=== PATIENT | male | born 1980 | race Caucasian/White ===

== ENCOUNTER 2018-01-28 16:34 | Inpatient (IN) | payer BC ==
[2018-01-28] MEDS ORDERED: ACETAMINOPHEN 500 MG TAB PO PRN (16:59)
[2018-01-28] MEDS ORDERED: DOCUSATE NA 100 MG CAP PO PRN (16:59)
[2018-01-28] MEDS ORDERED: NA CHLORIDE 0.9% 1,000 ML IV SCH (17:00)
[2018-01-28 17:37] LABS: Absolute Lymphocytes (CBC) 2.4 K/uL (0.7-4.9); Absolute Monocytes 0.7 K/uL (0.1-1.3); Absolute Neutrophil 5.2 K/uL (1.8-8.0); Basophils % 0.4 % (0-1.3); Eosinophils % 4.5 % (0-4.4); Hematocrit 47.7 % (39.6-49.0); Lymphocytes % 27.3 % (15.3-44.8); MCH 29.8 pg (27.0-35.0); MCV 90.4 fL (80-100); MPV 7.5 fL (7.6-11.3); Monocytes % 8.2 % (3.3-12.3); RBC Red Blood Cell Count 5.27 M/uL (4.33-5.43)
[2018-01-28] MEDS: MORPHINE 4 MG/ML SYR IV PRN ×2 (17:40→22:13)
[2018-01-28 17:45] LABS: Albumin 4.7 g/dL (3.2-5.5); Bilirubin Total 0.4 mg/dL (0.3-1.2); Protein, Total 7.7 g/dL (6.0-8.3)
[2018-01-28 18:01] VITALS: BMI 40.3
[2018-01-28 18:03] LABS: Potassium 4.4 mEq/L (3.6-5.0)
[2018-01-28] MEDS: HYDROCODONE/APAP 7.5/325 MG TAB PO PRN ×2 (18:51→23:11)
--- NOTE | 2018-01-28 19:50 | RAD REPORT ---
EXAM DESCRIPTION: RAD - Chest Single View - 01/28/2018 6:56 pm CLINICAL HISTORY: Cough COMPARISON: None. TECHNIQUE: AP portable chest image was obtained 1846 hours . FINDINGS: Lung romero are clear. No mediastinal or hilar mass or lymphadenopathy seen. Trachea is mi dline. Heart and vasculature are normal. No measurable pleural effusion and no pneumothorax. No gross bony abnormality seen. No acute aortic findings suspected. IMPRESSION: No acute cardiopulmonary process.
[2018-01-28] MEDS: acetaZOLAMIDE 250 MG TAB PO SCH (20:07)
[2018-01-28] MEDS: COMBIGAN EYE DROPS OPTH SCH (20:08)
[2018-01-28] MEDS: PREDNISOLONE 1% OPTH SOLN 5ML OPTH SCH (20:08)
[2018-01-28] MEDS: ATROPINE 1% OPTH DROPS 5ML OPTH SCH (20:08)
[2018-01-28] MEDS: BIMATOPROST OPHTH DROPS/2.5 ML BTL OPTH SCH (20:09)
[2018-01-28 20:19] LABS: Urine Appearance TURBID; Urine Bilirubin NEGATIVE (NEG); Urine Blood NEGATIVE (NEG); Urine Color YELLOW; Urine Glucose NEGATIVE (NEG); Urine Protein NEGATIVE (NEG)
[2018-01-28 20:20] LABS: Urine Microscopic Reflex ORDER UMIC
[2018-01-28 20:57] LABS: Urine Amorphous Sediment 4+ /HPF (NONE SEEN); Urine Bacteria 20-50 /HPF (NONE SEEN); Urine Culture Reflex Order REFLEXED; Urine RBC NONE SEEN /HPF (NONE SEEN)
[2018-01-28] MEDS ORDERED: acetaZOLAMIDE 250 MG TAB PO SCH (21:00)
[2018-01-28] MEDS ORDERED: ATROPINE 1% OPTH DROPS 5ML OPTH SCH ×2 (21:00)
--- NOTE | 2018-01-28 22:54 | HP ---
Date of Admission: 01/28/2018 Consultants: Jaiden Mao M.D., Ophthalmology. Code Status: Full. Chief Complaint: Eye pain on the left. 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 The patient reports s ignificant amount of pain since that time, which has not been controlled with medications. The patie nt of note is scheduled to have an enucleation of the by Dr. Mao; however, due to his intense continuously worsening pain, he is unable to tolerate his symptoms. No alleviating factors or aggrav ating factors. The patient denies any fevers, chills, nausea, vomiting, shortness of breath, or ches t pain. The patient initially came into the ER, Dr. Lozano assessed the situation and requested dir ect admission and the patient was admitted directly after Dr. Lozano spoke with Dr. Mao. When the patient was seen on the floor, he was awake, alert, oriented x3, in some moderate distress due to ey e pain. Past Medical History: Glaucoma, diagnosed in 2013. Past Surgical History: Appendectomy. Allergies: SULFA. Medications: Reviewed. Family History: Positive for macular degeneration in the grandfather. Social History: The patient is , has a son. Denies any tobacco use. Occasional alcohol use. No illicit drug use. Review of Systems: An 11-point system reviewed, negative except as per HPI. Physical Examination: Vital Signs: Stable. The patient is afebrile. General: Awake, alert, oriented x3, obese male in moderate distress. HEENT: Normocephalic, atraumatic. Right pupil is equal, reactive to light and accommodation. Extra ocular movements intact. Oropharynx is clear. Conjunctiva is anicteric. Neck: Supple. No JVD. Trachea midline. CV: S1, S2. Regular rate and rhythm. Peripheral pulses present. No murmurs. Respiratory: Clear to auscultation bilaterally. No wheezing. No stridor. No use of accessory musc les. Gastrointestinal: Abdomen is soft, nontender, nondistended. Positive bowel sounds. No guarding or rigidity. No palpable masses. Extremities: No clubbing, cyanosis, or edema. No calf tenderness. Neuro: Cranial nerves 3 through 12 intact grossly. No focal neurological deficits. Strength is 5/5 in bilateral upper and lower extremities. Sensation is intact to light touch. Skin: No rashes. Normal skin turgor. Psych: Mood is slightly anxious. Affect is congruent with mood. Insight and judgment are good. Laboratory Data: Pending at this time. Assessment And Plan: 1.A 38-year-old male with intractable left eye pain secondary to glaucoma. We will continue on home medications including eye drops and Diamox. We will start on pain medications. Dr. Mao will be c onsulted the patient to go for enucleation on Tuesday. 2.Obesity. 3.Gastrointestinal and deep venous thrombosis prophylaxis, PPI, SCDs. Plan: Admit the patient to Med-Surg, place as observation. We will obtain chest x-ray, EKG, CBC, CM P, and reconcile home medications once available. SARKIS Voice ID: [id number]
[2018-01-29] MEDS: MORPHINE 4 MG/ML SYR IV PRN ×5 (02:19→20:29)
[2018-01-29] MEDS: HYDROCODONE/APAP 7.5/325 MG TAB PO PRN ×5 (03:13→21:37)
[2018-01-29 06:13] LABS: Albumin 4.3 g/dL (3.2-5.5); Bilirubin Total 0.6 mg/dL (0.3-1.2); Potassium 4.2 mEq/L (3.6-5.0)
[2018-01-29 06:26] LABS: Absolute Lymphocytes (CBC) 1.9 K/uL (0.7-4.9); Absolute Monocytes 0.6 K/uL (0.1-1.3); Absolute Neutrophil 5.4 K/uL (1.8-8.0); Basophils % 0.4 % (0-1.3); Eosinophils % 4.3 % (0-4.4); Hematocrit 44.9 % (39.6-49.0); Lymphocytes % 22.8 % (15.3-44.8); MCH 30.2 pg (27.0-35.0); MCV 90.5 fL (80-100); MPV 7.5 fL (7.6-11.3); Monocytes % 7.5 % (3.3-12.3); RBC Red Blood Cell Count 4.96 M/uL (4.33-5.43)
[2018-01-29] MEDS: acetaZOLAMIDE 250 MG TAB PO SCH ×2 (08:22→20:21)
[2018-01-29] MEDS: PREDNISOLONE 1% OPTH SOLN 5ML OPTH SCH ×2 (08:24→20:22)
[2018-01-29] MEDS: COMBIGAN EYE DROPS OPTH SCH ×2 (08:25→20:22)
[2018-01-29] MEDS: BIMATOPROST OPHTH DROPS/2.5 ML BTL OPTH SCH ×2 (08:25→20:22)
[2018-01-29] MEDS: ATROPINE 1% OPTH DROPS 5ML OPTH SCH ×4 (08:25→20:21)
--- NOTE | 2018-01-29 09:38 | P.PN ---
Subjective Date of Service: 01/29/18 (Hospitalist note) Chief Complaint: Left eye pain Patient is admitted to the hospital for pain control scheduled to have a enucleation of the left eye due to severe glaucoma is pain is well controlled no other complaints he is eating and drinking well Review of Systems Unremarkable Physical Examination - Vital Signs Temperature: 97.6 F Blood Pressure: 116/56 Pulse: 68 Respirations: 18 Pulse Ox (%): 97 - Physical Exam General: Alert, Oriented x3 Neck: Supple Respiratory: Clear to auscultation bilaterally Cardiovascular: No edema, Normal S1 S2 Gastrointestinal: Normal bowel sounds, Soft and benign - Studies Laboratory Data (last 24 hrs) 01/29/18 05:23: Sodium 134 L, Potassium 4.2, BUN 23 H, Creatinine 1.46 H, Glucose 121 H, Total Bilirubin 0.6, AST 20, ALT 26, Alkaline Phosphatase 40 L 01/29/18 05:23: WBC 8.4, Hgb 15.0, Hct 44.9, Plt Count 259 01/28/18 17:17: Sodium 137, Potassium 4.4, BUN 22 H, Creatinine 1.57 H, Glucose 118, Total Bilirubin 0.4, AST 23, ALT 30, Alkaline Phosphatase 43 01/28/18 17:17: WBC 8.7, Hgb 15.7, Hct 47.7, Plt Count 281 Assessment & Plan - Problems (Diagnosis) (1) Pain around left eye Current Visit: Yes Status: Acute Plan: Patient is 38 years of age admitted with the pain control of the left eye scheduled for enucleation secondary to severe glaucoma renal function is abnormal (2) Chronic renal failure Current Visit: Yes Status: Acute Plan: Patient has abnormal creatinine most likely chronic renal failure of order an ultrasound of the kidneys urinalysis is negative Qualifiers: Chronic kidney disease stage: stage 1 Qualified Code(s): N18.1 - Chronic kidney disease, stage 1
--- NOTE | 2018-01-29 15:53 | RAD REPORT ---
EXAM DESCRIPTION: US - Renal Ultrasound-Complete - 01/29/2018 3:48 pm CLINICAL HISTORY: Renal insufficiency COMPARISON: CT December 2013 FINDINGS: The right kidney measures 10.2 x 4.9 x 5.3 cm. The left kidney measures 11.5 x 4.6 x 5.8 cm. Renal cortical thickness and echogenicity are normal. No hydronephrosis or suspicious renal mass. IMPRESSION: No hydronephrosis or suspicious renal mass. No other significant findings.
--- NOTE | 2018-01-29 22:36 | EKG ---
Test Date: 2018-01-28 Test Time: 18:04:27 Caustic Loader: ANASTASIYA MEASUREMENT RESULTS: Intervals: Rate: 80 WY: 146 QRSD: 82 QT: 356 QTc: 410 [place]: P: 35 WY: 146 QRS: 22 T: 12 INTERPRETIVE STATEMENTS: Normal sinus rhythm Normal ECG Compared to ECG 07/15/1996 12:27:00 No significant changes Electronically Signed On 01-29-18 22:35:52 CDT by Jake De La Torre
[2018-01-29] MEDS: ONDANSETRON 4 MG/2 ML VIAL IV PRN (23:01)
[2018-01-30] MEDS: MORPHINE 4 MG/ML SYR IV PRN ×3 (00:56→18:05)
[2018-01-30] MEDS: HYDROCODONE/APAP 7.5/325 MG TAB PO PRN ×5 (01:53→20:03)
[2018-01-30] MEDS: ONDANSETRON 4 MG/2 ML VIAL IV PRN ×2 (07:59→18:05)
[2018-01-30] MEDS: PREDNISOLONE 1% OPTH SOLN 5ML OPTH SCH ×2 (08:00→21:31)
[2018-01-30] MEDS: COMBIGAN EYE DROPS OPTH SCH ×2 (08:00→21:31)
[2018-01-30] MEDS: BIMATOPROST OPHTH DROPS/2.5 ML BTL OPTH SCH ×2 (08:01→21:32)
[2018-01-30] MEDS: ATROPINE 1% OPTH DROPS 5ML OPTH SCH ×4 (08:01→21:31)
[2018-01-30] MEDS: acetaZOLAMIDE 250 MG TAB PO SCH ×2 (08:38→21:30)
--- NOTE | 2018-01-30 11:20 | PN ---
Date of Progress Note: 01/30/2018 Subjective: The patient is seen and examined, chart reviewed, and case discussed with RN. The patie nt is still having significant amount of pain in his eye, scheduled for surgery in a.m. Review of Systems: Negative except as above. Medications: Reviewed. Physical Examination: Vital Signs: Temperature 98.5, heart rate 61, blood pressure 100/55, respirations 20, O2 97% on room air. General: Awake, alert, oriented x3. He is in mild distress, morbidly obese male. CV: S1, S2. No murmurs. Regular rate and rhythm. Respiratory: Moving air well bilaterally. No wheezing. Abdomen: Soft, nontender, and nondistended. Positive bowel sounds. Extremities: No clubbing, cyanosis, or edema. Neuro: Nonfocal. Assessment And Plan: A 38-year-old male with: 1.Intractable left eye pain secondary to glaucoma. We will continue with pain medications. We will give 1 dose of fentanyl. The patient is scheduled for enucleation in a.m. by Dr. Mao. 2.Glaucoma. We will continue eye drops. 3.Chronic kidney disease. Creatinine is stable. We will continue to monitor. Avoid NSAIDs and nep hrotoxins. 4.Morbid obesity, BMI of 40. Plan: Anticipate enucleation in a.m. GI and DVT prophylaxis, PPI, SCDs. /ZENY Voice ID: [id number] Report ID: [id number]
[2018-01-30] MEDS ORDERED: FENTANYL CITR 100 MCG/2 ML IV ONE (12:00)
[2018-01-30] MEDS: FENTANYL CITR 100 MCG/2 ML IV PRN (22:49)
[2018-01-31] MEDS: FENTANYL CITR 100 MCG/2 ML IV PRN ×5 (03:12→21:00)
[2018-01-31 05:48] LABS: Potassium 4.2 mEq/L (3.6-5.0)
[2018-01-31 05:55] LABS: Protime INR 0.96
[2018-01-31] MEDS: HYDROCODONE/APAP 7.5/325 MG TAB PO PRN (08:57)
[2018-01-31] MEDS: ATROPINE 1% OPTH DROPS 5ML OPTH SCH ×4 (08:58→21:10)
[2018-01-31] MEDS: BIMATOPROST OPHTH DROPS/2.5 ML BTL OPTH SCH ×2 (08:58→21:00)
[2018-01-31] MEDS: COMBIGAN EYE DROPS OPTH SCH ×2 (08:58→21:00)
[2018-01-31] MEDS: PREDNISOLONE 1% OPTH SOLN 5ML OPTH SCH ×2 (08:58→21:00)
[2018-01-31] MEDS: acetaZOLAMIDE 250 MG TAB PO SCH ×2 (08:59→21:07)
--- NOTE | 2018-01-31 14:27 | PN ---
Date of Progress Note: 01/31/2018 Subjective: The patient seen and examined, chart reviewed, and case discussed with RN. The patient states, the pain medication adjustment helped. The patient going for surgery this evening around 5:0 0 p.m. Review of Systems: Negative except as above. Medications: Reviewed. Physical Examination: Vital Signs: Temperature 100.8, heart rate 67, blood pressure 131/64, respirations 20, and O2 100% o n room air. General: Awake, alert, oriented x3, in some mild distress, morbidly obese male. CV: S1, S2. No murmurs. Peripheral pulses present. Respiratory: Moving air well bilaterally. No wheezing. Abdomen: Soft. Gastrointestinal: Abdomen is soft, nontender, nondistended. Positive bowel sounds. Extremities: No clubbing, cyanosis, or edema. Neurologic: Nonfocal. Laboratory Data: Sodium 135, potassium 4.2, chloride 109, CO2 22, BUN 19, creatinine 1.62, glucose 1 03, calcium 9.5, and magnesium 2. INR 0.96. Urine culture pending. Assessment And Plan: A 38-year-old male; 1.Intractable left eye pain secondary to glaucoma, improved with pain medications, going for enuclea tion today by Dr. Mao. 2.Glaucoma. Continue eyedrops. 3.Chronic kidney disease. Creatinine is stable. We will continue to monitor. 4.Morbid obesity, body mass index of 40, counseled. 5.Gastrointestinal and deep venous thrombosis prophylaxis with PPI and SCDs. Ambulation. SARKIS Voice ID: [id number] Report ID: [id number]
[2018-01-31] MEDS ORDERED: Ringers Lactate 1,000 ML IV ONE ×2 (16:38→18:44)
[2018-01-31] MEDS ORDERED: SUCCINYLCHOLINE 20 MG/ML (10 ML) IV ONE (17:01)
[2018-01-31] MEDS ORDERED: CEFAZOLIN/SWI 1gm 1 GM/10 ML SYR ONE (17:04)
[2018-01-31] MEDS ORDERED: MIDAZOLAM HCL 2 MG/2 ML INJ ONE (17:05)
[2018-01-31] MEDS ORDERED: PROPOFOL 200 MG/20 ML VIAL IV ONE (17:05)
[2018-01-31] MEDS ORDERED: FENTANYL CITR 250 MCG/5 ML ONE (17:05)
[2018-01-31] MEDS ORDERED: ROCURONIUM 50 MG/5 ML VIAL IV ONE (17:05)
[2018-01-31] MEDS ORDERED: BSS OPTHALMIC SOL 15 ML BOT OPTH ONE (17:42)
[2018-01-31] MEDS ORDERED: CEFAZOLIN SODIUM 1 GM/VIAL ONE (17:42)
[2018-01-31] MEDS ORDERED: POVIDONE-IODINE 5% EYE DROPS ONE (17:42)
[2018-01-31] MEDS ORDERED: GLYCOPYRROLATE 0.2 MG/ML SYR ONE ×2 (17:57→18:44)
[2018-01-31] MEDS ORDERED: TOBRADEX 0.3-0.1% OPTH OINTMENT ONE (18:11)
[2018-01-31] MEDS ORDERED: GENTAMICIN SULF 80 MG/2ML INJ ONE (18:19)
[2018-01-31] MEDS ORDERED: GENTAMICIN 80 MG/100 ML BAG 80 MG/100 ML BAG IV ONE (18:20)
[2018-01-31] MEDS ORDERED: NEOSTIGMINE 1 MG/ML -5 ML SYRINGE ONE (18:44)
[2018-01-31] MEDS ORDERED: MEPERIDINE HCL 25 MG/0.5 ML ONE ×2 (19:52→19:59)
[2018-01-31] MEDS ORDERED: ONDANSETRON 4 MG/2 ML VIAL ONE (19:59)
[2018-02-01] MEDS: FENTANYL CITR 100 MCG/2 ML IV PRN ×3 (00:54→09:28)
[2018-02-01 02:19] VITALS: O2SAT 97
[2018-02-01] MEDS: HYDROCODONE/APAP 7.5/325 MG TAB PO PRN ×3 (03:12→12:29)
--- NOTE | 2018-02-01 06:07 | OP ---
Date of Procedure: 01/31/2018 Surgeon: Joe Mao MD Product Architect: Jaiden Mao M.D. 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 Procedure Performed: Enucleation, left eye with placement of intra-ocular sphere and conformer. Description Of Procedure: After being properly identified in the preoperative holding area where the procedure as well as laterality were confirmed with both the patient and his spouse, the patient was taken back to the operating room where a time-out was performed. The patient was then prepped and draped in the normal sterile fashion. Examination of the left globe revealed it to be extremely red and slightly proptotic with no red reflex present. A conjunctival peritomy was performed 360 degrees and each of the 4 lateral rectus muscles was identified and then tagged with a 4-0 silk suture placed. Once all 4 had been identified, the muscles were then disinserted and again a 4- 0 silk suture placed through the muscle insertion stump at the location of the lateral rectus and medial rectus and tied into position. The inferior oblique as well as the superior oblique were similarly identified and kept free without suture tagging. Once all 6 muscles had been disinserted, a pair of enucleation scissors was passed behind the globe with the globe being pulled taut anteriorly. The optic nerve was felt and strummed and then the enucleation scissors used to cut the optic nerve. The disinsertion of the globe process itself was rather difficult with multiple maneuvers being had and while the globe was removed, it did appear that the globe may have been compromised as it was slightly soft upon removal, however it was well formed. Once the globe was removed, pressure was held into place in order to achieve hemostasis. There was noted to be a large amount of orbital fat prolapse. Once the direct pressure was removed, a small amount of cautery was performed and hemostasis was achieved. Because of the large amount of fat present, a small amount was removed and a size 14-mm sphere was placed in the orbit. The medial rectus and lateral rectus were then sewn together to hold back the conforming sphere and then an identical procedure was had on the inferior rectus and superior rectus. Once the muscle straps have been secured and the sphere appeared in good position without tendency to come forward, a closure of the conjunctiva was carried out using 6-0 Vicryl suture. This was done medial to laterally using a running suture and then once secured, a second pass going lateral to nasal was also performed. A conformer was then placed in the fornix in order to keep the fornix with good shape and again the 6-0 Vicryl suture was placed tying the inferior lid to the upper lid going approximately 2 mm inferior to the lower lid margin and 2.5 mm superior to the superior lid margin. These were tied into position. Once this was in place, a pressure patch was applied as well as wrapping the patient and Kerlix. The sphere and conformer prior to being placed in the eye have been bathed in gentamicin antibiotic and 1 g of Ancef was given preoperatively to the patient IV. The patient is to return to the floor this evening and I anticipate his discharge either tomorrow or the next day depending on his progress. There were no complications other than the potential compromise to the globe on exit. The globe will be sent for pathological identification evaluation. No drains were placed and the patient tolerated the procedure well without other complications. DICTATED BUT NOT REVIEWED CATRACHITA/ZENY Voice ID: [id number] Report ID: [id number] DELORIS
[2018-02-01 06:21] LABS: Absolute Lymphocytes (CBC) 1.2 K/uL (0.7-4.9); Absolute Monocytes 0.6 K/uL (0.1-1.3); Absolute Neutrophil 12.7 K/uL (1.8-8.0); Basophils % 0.3 % (0-1.3); Eosinophils % 0.1 % (0-4.4); Hematocrit 42.6 % (39.6-49.0); Lymphocytes % 8.5 % (15.3-44.8); MCH 29.8 pg (27.0-35.0); MCV 88.4 fL (80-100); MPV 7.2 fL (7.6-11.3); Monocytes % 4.2 % (3.3-12.3); RBC Red Blood Cell Count 4.82 M/uL (4.33-5.43)
[2018-02-01 07:03] LABS: Potassium 4.1 mEq/L (3.6-5.0)
[2018-02-01] MEDS: COMBIGAN EYE DROPS OPTH SCH (09:00)
[2018-02-01] MEDS: PREDNISOLONE 1% OPTH SOLN 5ML OPTH SCH (09:00)
[2018-02-01] MEDS: ATROPINE 1% OPTH DROPS 5ML OPTH SCH (09:00)
[2018-02-01] MEDS: BIMATOPROST OPHTH DROPS/2.5 ML BTL OPTH SCH (09:00)
[2018-02-01] MEDS: acetaZOLAMIDE 250 MG TAB PO SCH (09:29)
[2018-02-01 09:42] LABS: Blood Morphology Comment NOT SEEN (NOT SEEN); Platelet Estimate ADEQ; Urine White Blood Cell Casts OK
[2018-02-01] MEDS ORDERED: Levofloxacin 750mg IV 750 MG/150 ML BAG IV SCH (11:00)
[2018-02-01 15:03] VITALS: BP 135/82; TEMP 97.2
--- NOTE | 2018-02-02 14:37 | DS ---
Date of Discharge: 02/01/2018 Basin Operator: Dr. Mao, Ophthalmology. Procedures: On 01/31/2018, enucleation of the left eye with placement of intra-ocular sphere and con former. Admitting Diagnoses: 1.Intractable left eye pain secondary to glaucoma. 2.Morbid obesity. 3.Intractable pain. 4.Glaucoma. Discharge Diagnoses: 1.Intractable left pain secondary to glaucoma, status post enucleation. 2.Glaucoma. 3.Chronic kidney disease. Creatinine stable. 4.Morbid obesity, BMI of 40. Hospital Course: The patient is a 38-year-old male who was admitted directly to the hospital for int ractable eye pain on the left. The patient has glaucoma and is blind in the left eye. The patient w as admitted for pain control and Dr. Mao was consulted, who planned on doing an enucleation. The p atient was treated with IV fluids, acetazolamide, and his eyedrops were continued. IV pain medicatio ns were started which needed adjustment. The patient's pain was well controlled. The patient went f or enucleation on 01/31/2018 as mentioned above. The patient tolerated procedure well. He did have an equivocal UA and his urine culture did grow out Streptococcus agalactiae, possibly contamination. Regardless, the patient was treated with Levaquin. The patient did have a spike in his white count, likely related to acute phase reactant post surgery. He also had some acute on chronic kidney injur y. His creatinine improved with IV fluids. The patient was then cleared for discharge from ophthalm ology standpoint. He was discharged home in stable condition. [facility]. Medications: As per medication reconciliation list. Followup: Follow up with primary care physician in 2-3 days. Return to ER for worsening condition. Diet: Renal. Activity: No driving or operating heavy machine while on narcotics. The patient instructed to wear eye protection for his good eye now that he has left enucleation. The patient voiced understanding. Total time spent discharging patient was 35 minutes. Physical Examination: General: Awake, alert, oriented, no acute distress. CV: S1, S2. No murmurs. HEENT: Normocephalic, atraumatic. Right pupil is reactive to light. Left eye is bandaged. Respiratory: Moving air well bilaterally. Abdomen: Soft, nontender, nondistended. Positive bowel sounds. Extremities: No clubbing, cyanosis, edema. Neurologic: Nonfocal. SA/MODL Voice ID: [id number] Report ID: [id number]
--- NOTE | 2018-03-09 00:33 | CON ---
History: This gentleman is admitted through the ER with intractable pain in his left eye. It is a w eekend and he will have an enucleation as soon as possible for this blind painful eye. His pressure is uncontrollable on maximum medical therapy, and despite maximum medical therapy, his pain is uncont rollable due to the absolute glaucoma. 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 Procedure: Enucleation of left eye under general anesthesia. RUBI/ZENY Voice ID: [id number] Report ID: [id number]
== END 2018-02-01 12:53 | disposition home or self-care (01) | DRG 113 ==
LOC: INTOOBSV 16:34 → ERHOLD 16:34 → 2ND 16:37 → OBSVTOIN 01-30 12:41
PROVIDERS: ADMIT Family Medicine; ATTEND Family Medicine
PROC: 08H Eye, Insertion (ICD-10-PCS; 2018-01-31)
PROC: 08T1XZZ Resection of Left Eye, External Approach (ICD-10-PCS; principal; 2018-01-31 17:30)
DX: H40.1323 Pigmentary glaucoma, left eye, severe stage (principal); N17.9 Acute kidney failure, unspecified; Z68.41 Body mass index [BMI] 40.0-44.9, adult; H57.12 Ocular pain, left eye; E66.01 Morbid (severe) obesity due to excess calories; N18.1 Chronic kidney disease, stage 1
CPT/HCPCS: 36415; 71045; 76770; 80048; 80053; 81003; 81015; 83735; 85025; 85610; 87077; 87086; 87088; 87186; 88300; 93005; 94760; G0378; J0330; J0690; J1580; J2175; J2250; J2405; J2710; J3010; J7030

== ENCOUNTER 2020-11-14 20:20 | Emergency (ER) | payer BC ==
--- OUTSIDE RECORDS SUMMARY | 2020-11-14 20:22 | XMS REPORT | Summary of Care ---
:1980 Author Organization [facility] - [facility] Address [address] [place] [id number] Care Team Providers Name Role Phone Pcp, Patient Does Not Have A Primary Care Provider +[id number] Reason for Visit Reason Comments LAB Exposure Encounter Details Date Type Department Care Team Description 11/09/2020 Laboratory Only [facility] Family Paula Martin, TV NEWS DIRECTOR [address] [facility] [address] [place] [address] Exposure to Medicine - [facility], Adc Fam Pob I SARS-associated [address] [facility] coronaviru s ([address] Dx) [place] [address] Allergies Active Allergy Reactions Severity Noted Date Comments Sulfa (Sulfonamide Unknown - See comments 12/14/2013 Since childhood. 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 documented as of this encounter Last Filed Vital Signs Not on filedocumented in this encounter Nursing Notes Rachel Monreal MA - 11/09/2020 1:40 PM CSTChasya Fair is a 40 year old male here for COVID Screening with a Nasopharyngeal Swab All droplet and contact precautions taken with appropriate PPE worn while interacting with patient. ? Goggles ? N95 Mask ? Gloves ? Gown RR 18 Pulse Ox 98 % Patient educated on plan of care for visit, swabbing technique, risks and benefits of test and length of time to receive results. Verbal consent obtained to perform test. CDC Fact Sheet for Patients nCoV Diagnostic Panel dated 12/30/2019 and Factsheet What to Do if Sick with COVID 19 12/10/19 provided. Patient swabbed per appropriate nasopharyngeal technique, and patient tolerated well. Patient was discharged from the testing clinic in stable condition. Rachel Monreal MA 11/09/2020 11:28 AM R WHEELCHAIR MECHANIC documented in this encounter Plan of Treatment Name Type Priority Associated Diagnoses Order S kathy COVID-19 (MOLECULAR LAB Routine Exposure to Expected : 11/09/2020, TESTING SARS-associated Expires: 022 NUCLEIC ACID coronavirus AMPLIFICATION) Health Maintenance Due Date Last Done Comments VARICELLA VACCINES (1 of 2 - 1982 2-dose childhood series) Depression Screening 1993 DTaP,Tdap,and Td Vaccines ( - 01/18/2000 Tdap) INFLUENZA VACCINE (#1) 2020 PNEUMOCOCCAL 0-64 YEARS COMBINED Aged Out No longer eligible based on SERIES patient's age to complete this topic documented as of this encounter Results Not on filedocumented in this encounter Visit Diagnoses Diagnosis Exposure to SARS-associated coronavirus - Primary documented in this encounter Additional Health Concerns Infection Onset Date Last Indicated Resolved Time COVID-19 Rule Out 11/09/2020 11/09/2020 documented as of this encounter Insurance Payer Benefit Plan Subscriber ID Effective Dates Phone Address Type / Group [id number] 2015[address] [phone] [address] PPO/POS [place] [id number] [place] [address] (Home) [place] [address] (Work) documented as of this encounter
--- OUTSIDE RECORDS SUMMARY | 2020-11-14 20:22 | XMS REPORT ---
:1980 Author Organization Formerly [facility] Address [address], [facility] 1 [place] [address] Care Team Providers Name Role Phone Mihai Catalan Unavailable [phone] PROBLEMS Type Condition ICD9-CM PFR24-KZ Onset Condition SNOMED Code Notes Code Code Dates Status Problem Primary M17.11 Active [id number] osteoarthritis of right knee Problem Primary M17.12 Active [id number] osteoarthritis of left knee ALLERGIES Allergen (clinical drug Drug/Non Drug Allergy Reaction Allergy Type Onset Date Status ingredient) documented on EMR Sulfa Unknown Drug Allergy Active ENCOUNTERS from 1981 to 2020-08-27 Encounter Location Date Provider Diagnosis [facility] [address] Aug, Mihai mosqueda osteoarthritis [facility] 1 [address] of right kne e M17.11 ; [place], [place] Primary osteoar thritis [address] of left knee M1 7.12 ; Pain, joint, kn ee, left M25.562 and Basilia n, joint, knee, ri ght M25.561 IMMUNIZATIONS Vaccine Route Administration Date Status Bupivicaine [place] Unknown Jun 11, 2020 Administered Hyalgan 20 mg Unknown Aug 26, 2020 Administered Hyalgan 20 mg Unknown Aug 26, 2020 Administered Hyalgan 20 mg Unknown Aug 20, 2020 Administered Hyalgan 20 mg Unknown Aug 20, 2020 Administered Kenalog (Triamcinolone) Unknown Aug 20, 2020 Administ ered Bupivicaine [place] Unknown Jun 11, 2020 Administered Kenalog (Triamcinolone) Unknown Aug 20, 2020 Administ ered Bupivicaine [place] Unknown Aug 20, 2020 Administered Kenalog (Triamcinolone) Unknown Jun 11, 2020 Administ ered Bupivicaine [place] Unknown Aug 20, 2020 Administered Kenalog (Triamcinolone) Unknown Jun 11, 2020 Administ ered SOCIAL HISTORY Tobacco Use: Social History Observation Description Date Details (start date - stop date) Never Smoker Sex Assigned At : Social History Observation Description Sex Assigned At Unknown Alcohol Screen Question Answer Notes Did you have a drink containing alcohol in Yes the past year? Points 2 Interpretation Negative How often did you have 6 or more drinks on Never (0 points) one occasion in the past year? How many drinks did you have on a typical 1 or 2 (0 points) day when you were drinking in the past year? How often did you have a drink containing Two to four times a month (2 points) alcohol in the past year? Tobacco Use/Smoking Question Answer Notes Are you a never smoker Additional Findings: Tobacco Non-User Current non-smoker REASON FOR REFERRAL No Information VITAL SIGNS Height 66 in Aug, Weight 242 lbs Aug, Temperature 97.3 degrees Fahrenheit Aug, BMI 39.06 kg/m2 Aug, Blood pressure systolic 132 mm Hg Aug, Blood pressure diastolic 84 mm Hg Aug, MEDICATIONS Medication SIG (Take, Route, Start Date End Date Status Frequency, Duration) Budesonide Not-Taking Levothyroxine Sodium Active Vios Aerosol Delivery Not-Ta tamiko System Hydrocodone-Acetaminophen No t-Taking Tramadol HCl 50 MG 1 tablet Orally Q6H Jul, Ac tive PRN PAIN Albuterol Sulfate HFA Not-Ta tamiko Xhnvrwjot-Fyvkkozt-XK Not-Ta tamiko Azithromycin Not-Taking Meloxicam 7.5 MG 1 tablet Orally Once a Jul, Aug, A ctive day for 30 day(s) PROCEDURES No Information RESULTS No Results REASON FOR VISIT F/U BILATERAL KNEE PAIN: #2 HYALGAN INJECTIONS MEDICAL (GENERAL) HISTORY Type Description Date Medical History HT Medical History left eye Surgical History Enucleation, 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 Surgical History appendectomy Hospitalization History Enucleation, left eye with placement of 01/31/18 intra-ocular sphere and conformer Goals Section No Information Health Concerns No Information MEDICAL EQUIPMENT No Information MENTAL STATUS No Information FUNCTIONAL STATUS No Information ASSESSMENTS Encounter Date Diagnosis Notes Aug, Pain, joint, knee, left (ICD-10 - M25.56 2) Aug, Primary osteoarthritis of left knee (ICD -10 - M17.12) Aug, Pain, joint, knee, right (ICD-10 - M25.5 61) Aug, Primary osteoarthritis of right knee (IC D-10 - M17.11) PLAN OF TREATMENT Treatment Notes Assessment Notes Clinical Notes Primary osteoarthritis of right knee I discussed with the josh richmond at length his diagnosis and treatment plan and he expressed understanding. We will proceed with conservative treatment at this time. We discussed weight management, strengthening exercises, NSAIDs use, and corticosteroid/viscosupplementatio n injections. The patient underwent his 2nd bilateral knee hyalgan injections without complication. The patient was instructed to refrain from strenuous activities for the next 24 hours and to ice the area. He will return to clinic in 1 week for his 3rd hyalgan injection of the series. Primary osteoarthritis of left knee I discussed with the yulissa harry at length his diagnosis and treatment plan and he expressed understanding. We will proceed with conservative treatment at this time. We discussed weight management, strengthening exercises, NSAIDs use, and corticosteroid/viscosupplementatio n injections. The patient underwent his 2nd bilateral knee hyalgan injections without complication. The patient was instructed to refrain from strenuous activities for the next 24 hours and to ice the area. He will return to clinic in 1 week for his 3rd hyalgan injection of the series. Next Appt Details 1 Week Reason: Provider Name:Mihai Catalan, 2020-09-02 0 9:00:00 AM, [address] [facility] , [address], [place], [address], Insurance Providers Payer Name Payer Payer Insured Name Patient Coverage Covera End Address Phone Relationship to Start Date Markel e Insured [employer] [phone] Marv,Vandana self and Blue [id number] [facility] [address]
--- OUTSIDE RECORDS SUMMARY | 2020-11-14 20:22 | XMS REPORT | Continuity of Care Document ---
:1980 Author Organization [facility] t Address [address] [place] [address] Care Team Providers Name Role Phone Lab, Fam Pob I Attending Clinician Unavailable KENIA Attending Clinician Unavailable FLORENCIA Attending Clinician Unavailable Problems Condition Condition Condition Status Onset Resolution Last Treating Co mments Source Name Details Category Date Date Treatment Clinician Date Malabsorpt Malabsorpt Problem Active U nivers ion due to ion due to it y of intoleranc intoleranc [place], not e, not Physici elsewhere elsewhere ans classified classified Malnutriti Malnutriti Problem Active U nivers on on [facility] [place] [facility] ans Allergies, Adverse Reactions, Alerts Allergy Allergy Status Severity Reaction(s) Onset Inactive Treating Comm ents Source Name Type Date Date Clinician Sulfa Adverse Active Info Not [facility] Reaction Available [facility] Medications Ordered Filled Start Stop Current Ordering Indication Dosage Frequency Signature Comments Components Source Medication Medication Date Date Medication? Clinician (SIG) Name Name Pseudoeph-B Pseudoeph-B Yes Mihai not [facility] romphen-DM romphen-DM Catalan defined [facility] Azithromyci Azithromyci Yes Mihai not [facility] n n Catalan defined [facility] Vios Vios Yes Mihai not [facility] Aerosol Aerosol Catalan defined [facility] Hydrocodone Hydrocodone Yes Mihai not [facility] -Acetaminop -Acetaminop Catalan defined [facility] Levothyroxi Levothyroxi Yes Mihai not [facility] ne Sodium ne Sodium Catalan defined [facility] Albuterol Albuterol Yes Mihai not [facility] Sulfate HFA Sulfate HFA Catalan defined [facility] Budesonide Budesonide Yes Mihai not [facility] Catalan defined [facility] Vital Signs Vital Name Observation Time Observation Value Comments Source Height 2019-09-28 11:46:00 63.5 [in_us] [facility] Weight 2019-09-28 11:46:00 284.4 [lb_av] [facility] Body Mass Index 2019-09-28 11:46:00 49.59 kg/m2 [facility] Calculated Physicians Procedures Procedure Date / Time Performing Clinician Source Performed [LH] CBC (without 2019-09-28 00:00:00 [facility] differential) Physicians [QL] COMPREHENSIVE 2019-09-28 00:00:00 [facility] METABOLIC PANEL W/O eGFR Physici ans [QLH] FOLATE, SERUM 2019-09-28 00:00:00 [facility] [QL] HEMOGLOBIN A1c 2019-09-28 00:00:00 [facility] [QL] IRON AND TOTAL 2019-09-28 00:00:00 [facility] IRON BINDING CAPACITY Physicians [QL] LIPID PANEL 2019-09-28 00:00:00 [facility] [COUNTS INCLUDE 234 BEDS AT THE [facility]] PTH, INTACT 2019-09-28 00:00:00 [facility] (WITHOUT CALCIUM) Physicians [QL] TSH, 3RD 2019-09-28 00:00:00 [facility] GENERATION Physicians [QL] VITAMIN A 2019-09-28 00:00:00 [facility] (RETINOL) Physicians [QL] VITAMIN B1, WHOLE 2019-09-28 00:00:00 [facility] BLOOD Physicians [COUNTS INCLUDE 234 BEDS AT THE [facility]] VITAMIN B12 2019-09-28 00:00:00 [facility] Physicians [QL] VITAMIN D, 2019-09-28 00:00:00 [facility] 25-HYDROXY, LC/MS/MS Physicians [COUNTS INCLUDE 234 BEDS AT THE [facility]] VITAMIN E 2019-09-28 00:00:00 [facility] (TOCOPHEROL) Physicians Encounters Start End Encounter Admission Attending Care Care Encounter Source Date/Time Date/Time Type Type Clinicians Facility Department ID 2020-11-09 2020-11-09 Laboratory Lab, [facility] [id number] 11:12:58 11:32:58 Only Fam Pob I Health [id number] [place] [id number] Professio [phone] nal [address] One 2020-08-26 2020-08-26 Outpatient STLMLC [facility] [id number] [facility] 2020-08-20 2020-08-20 Outpatient STLMLC [facility]LMLC [id number] [facility] 2020-08-11 2020-08-11 Outpatient STLMLC STLMLC [id number] [facility] ent Clinics 2020-06-11 2020-06-11 [facility] [id number] [address] 10:00:00 10:00:00 t [facility] ent Clinics 2020-05-15 2020-05-15 Laboratory Lab, [facility] [id number] 14:28:18 14:37:35 Only Fam Pob I Health [id number] [place] [id number] Professio [phone] nal [address] One 2019-11-01 2019-11-01 Appointmen PAU EISENBERG UTP [id number] Univers 14:30:00 14:30:00 t; THANIA Andrade ity of [address] [place], [address] ans 2019-09-28 2019-09-28 Appointmen FAINA DON General [id number] Univers 11:00:00 11:00:00 t; BENJI Surgery - ity of Radha DON [place]in as Stacey LEBLANC D.O. ans 2019-08-31 2019-08-31 Miles DON, [facility] [id number] Univers 09:00:00 09:00:00 t; chelle LEBLANC D.O. [place] Stacey LEBLANC D.O. ans Results Test Description Test Time Test Comments Results Result Comments Source [] CBC (without differential) 2019-09-28 13:25:01 Test Item Value Reference Range Interpretation Comme nts WBC (test code = 6690-2) 5.7 {K/CMM} 3.7-10.4 RBC (test code = 789-8) 4.78 {M/CMM} 4.70-6.10 Hgb (test code = 718-7) 14.5 g/dl 14.0-18.0 Hct (test code = 63389-3) 44.0 % 42.0-54.0 MCV (test code = 787-2) 92.0 fL 80.0-94.0 MCH (test code = 785-6) 30.3 pg 27.0-31.0 MCHC (test code = 786-4) 32.9 g/dl 32.0-36.0 RDW (test code = 788-0) 13.3 % 11.5-14.5 Platelet (test code = 81067-0) 249 {K/CMM} 133-450 Mean Platelet Volume (test code = 88597-3) 7.6 fL 7.4-10.4 [facility] Physicians[COUNTS INCLUDE 234 BEDS AT THE [facility]] PTH, INTACT (WITHOUT CALCIUM)2019-09-28 13:25:01 Test Item Value Reference Range Interpretation Comments Parathyroid Hormone Intact; Above 84.4 pg/ml 18.4-80.1 High Threshold (test code = 2731-8) [facility][COUNTS INCLUDE 234 BEDS AT THE [facility]] HEMOGLOBIN [id number] 13:25:01 Test Item Value Reference Range Interpretation Comments Hemoglobin A1c; Above High Threshold 6.1 % <=5.6 (test code = 4548-4) [facility][COUNTS INCLUDE 234 BEDS AT THE [facility]] CMP [id number] 13:25:01 Test Item Value Reference Range Interpretation Comments Sodium Level 140 {mEq/l} 135-145 (test code = 2951-2) Potassium Level 4.3 {mEq/l} 3.5-5.1 (test code = 2823-3) Chloride Level 105 {mEq/l} 95-109 (test code = 5-0) Carbon Dioxide 29 {mEq/l} 24-32 (test code = 8-9) AGAP (test code = 10.3 {mEq/l} 10.0-20.0 86958-2) Glucose Lvl (test 92 mg/dl 70-99 Adult refe rence range code = 2345-7) values reflec t the clinical guidel inesof the [place] Diabet es Association. Creatinine Lvl 1.10 mg/dl 0.50-1.40 (test code = 2160-0) Blood Urea 14 mg/dl 7-22 Nitrogen (test code = 3094-0) BUN/Creatinine 13 6-25 Ratio (test code = 3097-3) Total Protein 7.3 g/dl 6.4-8.4 (test code = 2885-2) Albumin Lvl (test 4.4 g/dl 3.5-5.0 code = 1751-7) Globulin (test 2.9 g/dl 2.7-4.2 code = 40991-0) A/G Ratio (test 1.5 0.7-1.6 code = 1759-0) Calcium Level 9.0 mg/dl 8.5-10.5 Total (test code = 39119-8) ALT (test code = 57 u/l 0-65 1743-4) AST (test code = 27 u/l 0-37 63703-9) Bili Total (test 0.2 mg/dl 0.2-1.3 code = 1975-2) Alk Phos (test 56 u/l 39-136 The pediatric reference code = 1783-0) ranges for th is test represent a CLSI-basedtrans ference of the CALIPER greg abase of pediatric refer ence intervals to eSiemens Denison analyzer (Clinical Biochemistry 46 (2013): 6255-3599). [facility] has not internally validated these reference ranges and therefore they should be used only in th e context of a thoroughcl inical assessment. eGFR (test code = 85 The eGFR i s calculated 83524-0) {ML/MIN/1.7} using the CKD-E PI formula. In mos t young, healthyindividu als the eGFR will be >9 0 mL/min/1.73m2. The eGFR declines with a ge. AneGFR of 60-89 may be normal in some population s, particularly th e elderly, forwhom the CKD -EPI formula has not been extensively shelli idated. Use of the eGFR isnot recommended in the following populations:Ind ividuals with unstable c reatinine concentrations, including patient s and those with seri ous co-morbid conditions.Radha ents with extremes in mus garcia mass or diet.The greg a above are obtained fr om the National Kidney Disease Education Progr am(NKDEP) which mouna nelson recommends that when the eGFR is used in patientswith ex tremes of body mass index for purposes of yao g dosing, the eGFR should be multiplied by t he estimated BMI. [facility][COUNTS INCLUDE 234 BEDS AT THE [facility]] FOLATE, [id number] 13:25:01 Test Item Value Reference Range Interpretation Comments Folate Level (test code = 2284-8) 7.1 ng/ml >=3.0 [facility][COUNTS INCLUDE 234 BEDS AT THE [facility]] IRON AND TOTAL IRON BINDING CAPACITY 2019-09-28 13:25:01 Test Item Value Reference Range Interpretation Comments Iron (test code = 2498-4) 67 ug/dL 45-160 % Satur Fe (test code = 2502-3) 18 % 12-57 TIBC (test code = 2500-7) 380 ug/dL 228-428 UIBC (test code = UIBC) 313 ug/dL 110-370 [facility][COUNTS INCLUDE 234 BEDS AT THE [facility]] TSH, 3RD [id number] 13:25:01 Test Item Value Reference Range Interpretation Comments TSH (test code = 97481-2) 2.700 {uIU/ml} 0.360-3.740 [facility][COUNTS INCLUDE 234 BEDS AT THE [facility]] VITAMIN [id number] 13:25:01 Test Item Value Reference Range Interpretation Comments Vitamin B12 Level (test code = 345 pg/ml 254-1320 2-9) [facility][COUNTS INCLUDE 234 BEDS AT THE [facility]] LIPID [id number] 13:25:01 Test Item Value Reference Range Interpretation Comments Chol (test code = 168 mg/dl <=199 3-3) Trig; Above High 450 mg/dl <=149 Threshold (test code = 2571-8) HDL Cholesterol; 31 mg/dl >=61 Below Low Threshold (test code = 2085-9) CHD Risk (test 5.42 4.00-7.30 code = 28921-6) LDL (test code = See Note <=99 [place] [address]-6) calculated due to very high triglyceri xiomara (>400mg/dL). Re commend Direct LDL if c linically indicated. VLDL (test code = See Note VLDL - Cho lesterol level VLDL) cannot be accur ately calculated due to very hightriglycerid es (>400 mg/dL). [facility][QLH] VITAMIN D, 25-HYDROXY, LC/MS/[id number] 13:25:01 Test Item Value Reference Range Interpretation Comments Vitamin D, 25-OH, 27.9 ng/ml 30.0-100.0 Reference range is based Total (test code on recommen dations in the = Vitamin D, EndocrineSociet y Clinical 25-OH, Total) Practice Guide line (J Clin Endocrinol Vrkaz6165;96:19 11-1930) [facility][H] Vitamin E [id number] 13:25:01 Test Item Value Reference Range Interpretation Comments Alpha-Tocoph 15.9 mg/L 5.9-19.4 This test was d eveloped and its orly (test performance code = characteristics determined by [facility]oc[facility]. It has not been cleared orly) orapproved by [facility] Food and Drug Administration. Gamma-Tocoph 2.3 mg/L 0.7-4.9 This test was d eveloped and its orly (test performance code = characteristics determined by Gamma[facility]Tocoph [facility]. It has not been cleared orly) orapproved by [facility] Food and Drug Administration. Reference intervals for a lpha and gamma-tocophero ldetermined from National Health and Nutrition ExaminationSurv ey, 1996-2492. Individuals wit h alpha-tocophero l levelsless than 5.0 mg/L are co nsidered vitamin E deficient.Per formed At: [facility] [id number] [place], [place] [id number] ra Artemio BUCKNER Ph:[phone] [facility][H] Vit [id number] 13:25:01 Test Item Value Reference Range Interpretation Comments Vitamin A 46.3 ug/dL 18.9-57.3 Reference inter vals for vitamin Level (test A determined fr om code = LabCorpinternal studies. Vitamin A Individuals wit h vitamin A less Level) than 20ug/dL ar e considered vitamin A defic ient and those withserum charanjit ntrations less than 10 ug/dL a re consideredsever arnold deficient.This test was developed and i ts performance characteristics determined by [facility]. It has not been cleared orappro samara by the Food and Drug Administration. Performed At: [facility] [employer] [facility] [address] [id number] ra Artemio BUCKNER Ph:[phone] [facility][COUNTS INCLUDE 234 BEDS AT THE [facility]] VITAMIN B1, WHOLE [id number] 13:25:01 Test Item Value Reference Range Interpretation Comments Vitamin B1 108.6 66.5-200.0 This test was d eveloped and its Level (test nmol/L performance code = characteristics determined by Vitamin B1 [facility]. It has not been Level) cleared orappro samara by the Food and Drug Administration. Performed At: [facility] [address] [id number] ra Artemio BUCKNER Ph:[phone] [facility]
--- OUTSIDE RECORDS SUMMARY | 2020-11-14 20:22 | XMS REPORT ---
:1980 Author Organization [facility] Address [address], [facility] 1 [place] [address] Care Team Providers Name Role Phone Hossein Mihai Unavailable [phone] PROBLEMS Type Condition ICD9-CM SYY23-AN Onset Condition SNOMED Code Notes Code Code Dates Status Problem Primary M17.11 Active [id number] osteoarthritis of right knee Problem Primary M17.12 Active [id number] osteoarthritis of left knee ALLERGIES Allergen (clinical drug Drug/Non Drug Allergy Reaction Allergy Type Onset Date Status ingredient) documented on EMR Sulfa Unknown Drug Allergy Active ENCOUNTERS from 1980 to 2020-08-21 Encounter Location Date Provider Diagnosis [facility] [address] Aug, Mihai mosqueda osteoarthritis [facility] [address] of right kne e M17.11 ; [place], [place] Primary osteoar thritis [address] of left knee M1 7.12 ; Pain, joint, kn ee, left M25.562 and Basilia n, joint, knee, ri ght M25.561 IMMUNIZATIONS Vaccine Route Administration Date Status Bupivicaine [place] Unknown Aug 20, 2020 Administered Bupivicaine [place] Unknown Jun 11, 2020 Administered Bupivicaine [place] Unknown Jun 11, 2020 Administered Hyalgan 20 mg Unknown Aug 20, 2020 Administered Hyalgan 20 mg Unknown Aug 20, 2020 Administered Kenalog (Triamcinolone) Unknown Aug 20, 2020 Administ ered Bupivicaine Chemult Unknown Aug 20, 2020 Administered Kenalog (Triamcinolone) Unknown Aug 20, 2020 Administ ered Kenalog (Triamcinolone) Unknown Jun 11, 2020 Administ ered Kenalog (Triamcinolone) Unknown Jun 11, 2020 Administ [...] BMI 39.06 kg/m2 Aug, Blood pressure systolic 124 mm Hg Aug, Blood pressure diastolic 82 mm Hg Aug, MEDICATIONS Medication SIG (Take, Route, Start Date End Date Status Frequency, Duration) Vios Aerosol Delivery Not-Ta tamiko System Tramadol HCl 50 MG 1 tablet Orally Q6H Jul, Ac tive PRN PAIN Azithromycin Not-Taking Albuterol Sulfate HFA Not-Ta tamiko Meloxicam 7.5 MG 1 tablet Orally Once a Jul, Aug, A ctive day for 30 day(s) Hydrocodone-Acetaminophen No t-Taking Budesonide Not-Taking Hkcmspjor-Taisarjl-BT Not-Ta tamiko Levothyroxine Sodium Active PROCEDURES No Information RESULTS No Results REASON FOR VISIT 1ST HYALGAN & KENALOG INJ STEPHIE KNEE MEDICAL (GENERAL) HISTORY Type Description Date Medical [...] Clinical Notes Primary osteoarthritis of right knee II discussed with the ezio coker at length his diagnosis and treatment plan and he expressed understanding. We will proceed with conservative treatment at this time. We discussed weight management, strengthening exercises, NSAIDs use, and corticosteroid/viscosupplementatio n injections. The patient underwent bilateral knee kenalog/hyalgan injections without complication. The patient was instructed to refrain from strenuous activities for the next 24 hours and to ice the area. He will return to clinic in 1 week for his 2nd hyalgan injection of the series. Primary osteoarthritis of left knee II discussed with the josh richmond at length his diagnosis and treatment plan and he expressed understanding. We will proceed with conservative treatment at this time. We discussed weight management, strengthening exercises, NSAIDs use, and corticosteroid/viscosupplementatio n injections. The patient underwent bilateral knee kenalog/hyalgan injections without complication. The patient was instructed to refrain from strenuous activities for the next 24 hours and to ice the area. He will return to clinic in 1 week for his 2nd hyalgan injection of the series. Next Appt Details 1 Week Reason: Provider Name:Mihai Catalan 2020-08-26 0 9:00:00 AM, [address], [place], [address], Provider Name:Mihai Smithmoi 2020-09-02 0 9:00:00 AM, [address], [place], [address], Insurance Providers Payer Name Payer Payer Insured Name Patient Coverage Covera ge End Address Phone Relationship to Start Date Markel e Insured [employer] [phone] Marv,Vandana self and Blue [id number] [facility] [phone]
[2020-11-14 23:55] LABS: Absolute Lymphocytes (CBC) 1.7 K/uL (0.7-4.9); Basophils % 0.5 % (0-1.3); Hematocrit 43.4 % (39.6-49.0); Lymphocytes % 23.3 % (15.3-44.8); MPV 7.3 fL (7.6-11.3)
[2020-11-14 23:56] LABS: Protime INR 0.95
[2020-11-14] MEDS ORDERED: FAMOTIDINE 20 MG/2 ML VIAL IV ONE (23:56)
[2020-11-14] MEDS ORDERED: METRONIDAZOLE 500mg IVPB 500 MG/100 ML BAG IV ONE (23:56)
[2020-11-14] MEDS ORDERED: Levofloxacin500mg IV 500 MG/100 ML BAG IV ONE (23:56)
[2020-11-15 00:07] LABS: ALT/SGPT 56 U/L (12-78); AST/SGOT 22 U/L (15-37); Albumin 3.9 g/dL (3.4-5.0); Alkaline Phosphatase 48 U/L (45-117); BUN Blood Urea Nitrogen 17 mg/dL (7-18); Bicarbonate 26 mmol/L (21-32); Bilirubin Direct < 0.1 mg/dL (0-0.2); Bilirubin Total 0.3 mg/dL (0.2-1.0); Glucose Level 104 mg/dL (74-106); Lipase 98 U/L (73-393); Magnesium 2.2 mg/dL (1.8-2.4); NT PRO-BNP 17 pg/mL (<125); Potassium 3.6 mmol/L (3.5-5.1); Protein, Total 7.3 g/dL (6.4-8.2); Sodium Level 139 mmol/L (136-145); Troponin (Emerg Dept Use Only) < 0.02 ng/mL (0.0-0.045)
--- NOTE | 2020-11-15 01:51 | ER ---
Nurse's Notes [facility] Name: Holger Fair Age: 40 yrs Sex: Male : 1980 Arrival Date: 11/14/2020 Time: 20:22 Bed 6 Private MD: Diagnosis: Fever, unspecified;Abdominal tenderness;Diarrhea, unspecified Presentation: 11/14 20:41 Chief complaint: Patient states: Sore throat, fever, diarrhea began 10 days ago. Did ll1 telemed visit last week. Took azithromycin, covid negative. Nausea/Vomiting for 1 week. CP and cough for 2 days. Coronavirus screen: Client denies travel out of the [place] in the last 14 days. chills, cough unrelated to allergies, diarrhea, difficulty breathing, fatigue, fever, headache, muscle pain, nausea, shaking with chills, shortness of breath, sore throat, vomiting. Client presents with at least one sign or symptom that may indicate coronavirus-19. Standard/surgical mask placed on the client. The client reports previous COVID testing was negative. Ebola Screen: Patient denies travel to an Ebola-affected area in the 21 days before illness onset. Initial Sepsis Screen: Does the patient meet any 2 criteria? No. Patient's initial sepsis screen is negative. Does the patient have a suspected source of infection? Yes: Productive cough/pneumonia. Risk Assessment: Do you want to hurt yourself or someone else? Patient reports no desire to harm self or others. Onset of symptoms was November 04, 2020. 20:41 Method Of Arrival: Ambulatory ll1 20:41 Acuity: SHIVAM 3 ll1 Historical: - Allergies: 20:46 Sulfa (Sulfonamide Antibiotics); ll1 - PMHx: 20:46 None; ll1 - PSHx: 20:46 Appendectomy; L eye rermoved; ll1 - Immunization history:: Flu vaccine is not up to date. - Social history:: Smoking status: Reported history of juuling and/or vaping. Patient denies any tobacco usage or history of. Screenin/30 00:00 Abuse screen: Denies threats or abuse. Nutritional screening: No deficits noted. ea Tuberculosis screening: No symptoms or risk factors identified. Fall Risk None identified. Assessment: 11/14 23:30 General: Appears in no apparent distress. Behavior is appropriate for age. Pain: ea Complains of pain in abdomen. Neuro: Level of Consciousness is awake, alert, obeys commands, Oriented to person, place, time, situation. Cardiovascular: Patient's skin is warm and dry. Respiratory: Airway is patent Respiratory effort is even, unlabored, Respiratory pattern is regular, symmetrical. GI: Abdomen is non-distended. Derm: Skin is pink, warm \T\ dry. 11/15 02:57 Reassessment: Patient and/or family updated on plan of care and expected duration. Pain ea level reassessed. Patient is alert, oriented x 3, equal unlabored respirations, skin warm/dry/pink. Discharge instruction given to patient, verbalized the understanding of instruction. Pt left ED ambulatory tolerating well. Vital Signs: 11/14 20:41 BP 147 / 96; Pulse 80; Resp 18; Temp 98.0; Pulse Ox 97% ; Weight 114.31 kg; Height 5 ll1 ft. 6 in. (167.64 cm); Pain 7/10; 20:41 Body Mass Index 40.67 (114.31 kg, 167.64 cm) ll1 ED Course: 20:22 Patient arrived in ED. cl3 20:45 Triage completed. ll1 20:46 Arm band placed on. ll1 23:00 Milan Fischer MD is Attending Physician. vandana 23:12 Annetta Portillo, JACINDA is Primary Nurse. ea 23:27 XRAY Chest (1 view) In Process Unspecified. EDMS 11/15 00:00 Patient has correct armband on for positive identification. Bed in low position. Call ea light in reach. Side rails up X2. 00:00 Inserted saline lock: 20 gauge in right antecubital area, using aseptic technique. ea 00:48 CT Chest For PE Angio In Process Unspecified. EDMS 00:49 CT Abd/Pelvis - IV Contrast Only In Process Unspecified. EDMS 01:51 Joshua Caldwell MD is Referral Physician. vandana 02:57 No provider procedures requiring assistance completed. IV discontinued, intact, ea bleeding controlled, No redness/swelling at site. Pressure dressing applied. Administered Medications: 11/14 23:40 Drug: Flagyl 500 mg Volume: 100 ml; Route: IVPB; Rate: 200 ml/hr; Infused Over: 30 ea mins; Site: right antecubital; 11/15 01:30 Follow up: IV Status: Completed infusion ea 11/14 23:40 Drug: Pepcid 20 mg Route: IVP; Site: right antecubital; ea 11/15 02:56 Follow up: Response: No adverse reaction ea 01:46 Drug: levofloxacin 500 mg Volume: 100 ml; Route: IVPB; Infused Over: 60 mins; Site: ea right antecubital; 02:56 Follow up: Response: No adverse reaction; IV Status: Completed infusion ea Outcome: 01:50 Discharge ordered by MD. ross 02:58 Discharged to home ambulatory. ea 02:58 Condition: stable 02:58 Discharge instructions given to patient, Instructed on discharge instructions, follow up and referral plans. medication usage, Demonstrated understanding of instructions, follow-up care, medications, Prescriptions given X 3. 02:58 Patient left the ED. ea Signatures: Dispatcher [employer] EDMilan Melendez MD MD cha Antunez, Elena, RN RN Rory Contreras cl3 Gema Bailey RN RN ll1
--- NOTE | 2020-11-15 01:51 | EDPHYS ---
Physician Documentation [facility] Name: Holgre Fair Age: 40 yrs Sex: Male : 1980 Arrival Date: 11/14/2020 Time: 20:22 Bed 6 Private MD: ED Physician Milan Fischer HPI: 11/14 23:09 This 40 yrs old Male presents to ER via Ambulatory with complaints of Fever, vandana Abdominal Pain. 23:09 The patient reports fever, that was measured at 100 degrees Fahrenheit. Onset: The vandana symptoms/episode began/occurred 5 day(s) ago. Modifying factors: there are no obvious modifying factors. Associated signs and symptoms: Pertinent positives: abdominal pain, cough. Severity of symptoms: At their worst the symptoms were mild moderate in the emergency department the symptoms are unchanged. The patient has not experienced similar symptoms in the past. Historical: - Allergies: 20:46 Sulfa (Sulfonamide Antibiotics); ll1 - PMHx: 20:46 None; ll1 - PSHx: 20:46 Appendectomy; L eye rermoved; ll1 - Immunization history:: Flu vaccine is not up to date. - Social history:: Smoking status: Reported history of juuling and/or vaping. Patient denies any tobacco usage or history of. ROS: 23:10 Constitutional: Negative for fever, chills, and weight loss, Eyes: Negative for injury, vandana pain, redness, and discharge, ENT: Negative for injury, pain, and discharge, Neck: Negative for injury, pain, and swelling, Cardiovascular: Negative for chest pain, palpitations, and edema, Abdomen/GI: Negative for abdominal pain, nausea, vomiting, diarrhea, and constipation, Back: Negative for injury and pain, : Negative for injury, bleeding, discharge, and swelling, MS/Extremity: Negative for injury and deformity, Skin: Negative for injury, rash, and discoloration, Neuro: Negative for headache, weakness, numbness, tingling, and seizure. 23:10 Respiratory: Positive for cough, with no reported sputum. 23:10 Abdomen/GI: Positive for abdominal pain, diarrhea, abdominal cramps, of the epigastric area, right upper quadrant and left upper quadrant. Exam: 23:10 Constitutional: This is a well developed, well nourished patient who is awake, alert, vandana and in no acute distress. Head/Face: Normocephalic, atraumatic. Eyes: Pupils equal round and reactive to light, extra-ocular motions intact. Lids and lashes normal. Conjunctiva and sclera are non-icteric and not injected. Cornea within normal limits. Periorbital areas with no swelling, redness, or edema. ENT: Nares patent. No nasal discharge, no septal abnormalities noted. Tympanic membranes are normal and external auditory canals are clear. Oropharynx with no redness, swelling, or masses, exudates, or evidence of obstruction, uvula midline. Mucous membranes moist. Neck: Trachea midline, no thyromegaly or masses palpated, and no cervical lymphadenopathy. Supple, full range of motion without nuchal rigidity, or vertebral point tenderness. No Meningismus. Chest/axilla: Normal chest wall appearance and motion. Nontender with no deformity. No lesions are appreciated. Cardiovascular: Regular rate and rhythm with a normal S1 and S2. No gallops, murmurs, or rubs. Normal PMI, no JVD. No pulse deficits. Respiratory: Lungs have equal breath sounds bilaterally, clear to auscultation and percussion. No rales, rhonchi or wheezes noted. No increased work of breathing, no retractions or nasal flaring. Back: No spinal tenderness. No costovertebral tenderness. Full range of motion. Male : Normal genitalia with no discharge or lesions. Skin: Warm, dry with normal turgor. Normal color with no rashes, no lesions, and no evidence of cellulitis. MS/ Extremity: Pulses equal, no cyanosis. Neurovascular intact. Full, normal range of motion. Neuro: Awake and alert, GCS 15, oriented to person, place, time, and situation. Cranial nerves II-XII grossly intact. Motor strength 5/5 in all extremities. Sensory grossly intact. Cerebellar exam normal. Normal gait. Psych: Awake, alert, with orientation to person, place and time. Behavior, mood, and affect are within normal limits. 23:10 Abdomen/GI: Inspection: abdomen appears normal, Bowel sounds: active, Palpation: mild abdominal tenderness, Liver: no appreciated palpable abnormalities, Hernia: not appreciated. 23:22 ECG was reviewed by the Attending Physician. [facility] Vital Signs: 20:41 BP 147 / 96; Pulse 80; Resp 18; Temp 98.0; Pulse Ox 97% ; Weight 114.31 kg; Height 5 ll1 ft. 6 in. (167.64 cm); Pain 7/10; 20:41 Body Mass Index 40.67 (114.31 kg, 167.64 cm) ll1 MDM: 23:00 Patient medically screened. vandana 23:12 Differential diagnosis: viral Infection, bacterial infection, bronchitis, pneumonia vandana gastroenteritis. HEART Score: History: Slightly Suspicious (0), ECG: Normal (0), Age: < or = 45 years (0), Risk Factors: 1 or 2 risk factors (1), [Obesity] Troponin: < or = 1 x Normal Limit (0). The patient's deep vein thrombosis risk score was calculated as follows: Total Score: 0. This patient was found to be at low risk for a deep vein thrombosis by using the Well's assessment criteria. The patient's pulmonary embolism risk score was calculated as follows: Total Score: 0-2 points. This patient was found to be at low risk for a pulmonary embolism by using the Well's assessment criteria. BYRON Risk Score: TOTAL SCORE = 0. Data reviewed: vital signs, nurses notes, lab test result(s), EKG, radiologic studies, CT scan, plain films. Data interpreted: electronic device monitor: rate is 80 beats/min, rhythm is regular, Pulse oximetry: on room air is 97 %. Test interpretation: by ED physician or midlevel provider: ECG, plain radiologic studies. Counseling: I had a detailed discussion with the patient and/or guardian regarding: the historical points, exam findings, and any diagnostic results supporting the discharge/admit diagnosis, lab results, radiology results, the need for outpatient follow up. 11/14 23:09 Order name: Basic Metabolic Panel 11/14 23:09 Order name: CBC with Diff 11/14 23:09 Order name: LFT's 11/14 23:09 Order name: Magnesium 11/14 23:09 Order name: NT PRO-BNP 11/14 23:09 Order name: PT-INR 11/14 23:09 Order name: Troponin (emerg Dept Use Only) 11/14 23:09 Order name: Lipase 11/14 23:09 Order name: Blood Culture Adult (2) 11/14 23:09 Order name: Lactate [facility] 11/14 23:13 Order name: Basic Metabolic Panel; Complete Time: 01:48 EDPR 11/14 23:09 Order name: XRAY Chest (1 view) [facility] 11/14 23:09 Order name: CT Chest For PE Angio [facility] 11/14 23:09 Order name: CT Abd/Pelvis - IV Contrast Only [facility] 11/14 23:13 Order name: CBC with Automated Diff; Complete Time: 01:48 EDPR 11/14 23:13 Order name: Liver (Hepatic) Function; Complete Time: 01:48 EDPR 11/14 23:13 Order name: Magnesium; Complete Time: 01:48 EDMS 11/14 23:13 Order name: NT PRO-BNP; Complete Time: 01:48 EDPR 11/14 23:13 Order name: Protime (+INR); Complete Time: 01:48 EDPR 11/14 23:13 Order name: Troponin (Emerg Dept Use Only); Complete Time: 01:48 EDPR 11/14 23:13 Order name: Lipase; Complete Time: 01:48 EDPR 11/14 23:13 Order name: Blood Culture [facility] 11/14 23:13 Order name: Lactate; Complete Time: 01:48 EDPR 11/15 00:42 Order name: SARS-COV-2 RT PCR; Complete Time: 01:49 EDPR 11/15 01:59 Order name: Urine Dipstick--Ancillary (enter results) [facility] 11/14 23:09 Order name: EKG; Complete Time: 23:14 [facility] 11/14 23:09 Order name: Cardiac monitoring; Complete Time: 23:47 [facility] 11/14 23:09 Order name: EKG - Nurse/Tech; Complete Time: 23:47 [facility] 11/14 23:09 Order name: IV Saline Lock; Complete Time: 23:47 [facility] 11/14 23:09 Order name: Labs collected and sent; Complete Time: 23:47 [facility] 11/14 23:09 Order name: O2 Per Protocol; Complete Time: 01:53 [facility] 11/14 23:09 Order name: O2 Sat Monitoring; Complete Time: 01:53 [facility] 11/14 23:09 Order name: Urine Dipstick-Ancillary (obtain specimen); Complete Time: 01:58 [facility] EC:22 Rate is 66 beats/min. Rhythm is regular. QRS [place] is Normal. [place] interval is normal. QRS vandana interval is normal. QT interval is normal. No Q waves. T waves are Normal. No ST changes noted. Clinical impression: NSR w/ Non-specific ST/T Changes and No evidence of ischemia. Interpreted by me. Reviewed by me. Administered Medications: 23:40 Drug: Flagyl 500 mg Volume: 100 ml; Route: IVPB; Rate: 200 ml/hr; Infused Over: 30 ea mins; Site: right antecubital; 11/15 01:30 Follow up: IV Status: Completed infusion ea 11/14 23:40 Drug: Pepcid 20 mg Route: IVP; Site: right antecubital; ea 11/15 02:56 Follow up: Response: No adverse reaction ea 01:46 Drug: levofloxacin 500 mg Volume: 100 ml; Route: IVPB; Infused Over: 60 mins; Site: ea right antecubital; 02:56 Follow up: Response: No adverse reaction; IV Status: Completed infusion ea Disposition: 11/15/20 01:50 Discharged to Home. Impression: Fever, unspecified, Abdominal tenderness, Diarrhea, unspecified. - Condition is Stable. - Discharge Instructions: Abdominal Pain, Adult, Food Choices to Help Relieve Diarrhea, Adult, Diarrhea, Adult, Fever, Adult, Abdominal Pain, Adult, [id number], Diarrhea, Adult, [id number]. - Prescriptions for Bentyl 20 mg Oral Tablet - take 1 tablet by ORAL route every 6 hours As needed; 20 tablet. Pepcid 20 mg Oral Tablet - take 1 tablet by ORAL route every 12 hours for 10 days; 20 tablet. Flagyl 500 mg Oral Tablet - take 1 tablet by ORAL route every 8 hours for 10 days; 21 tablet. - Medication Reconciliation Form, Thank You Letter, Antibiotic Education, Prescription Opioid Use form. - Follow up: Private Physician; When: 2 - 3 days; Reason: Recheck today's complaints, Continuance of care, Re-evaluation by your physician. Follow up: Joshua Caldwell MD; When: 2 - 3 days; Reason: Recheck today's complaints, Continuance of care, Re-evaluation by your physician. - Problem is new. - Symptoms have improved. Signatures: Dispatcher [employer] EDMilan Melendez MD MD cha Antunez, Elena RN RN Gema Contreras RN RN ll1 Corrections: (The following items were deleted from the chart) 11/14 23:45 23:13 CORONAVIRUS+BRZ ordered. EDPR EDMS 11/15 01:51 01:50 11/15/2020 01:50 Discharged to Home. Impression: Fever, unspecified; Abdominal vandana tenderness; Diarrhea, unspecified. Condition is Stable. Forms are Medication Reconciliation Form, Thank You Letter, Antibiotic Education, Prescription Opioid Use. Follow up: Private Physician; When: 2 - 3 days; Reason: Recheck today's complaints, Continuance of care, Re-evaluation by your physician. Problem is new. Symptoms have improved. vandana 02:58 01:51 11/15/2020 01:50 Discharged to Home. Impression: Fever, unspecified; Abdominal ea tenderness; Diarrhea, unspecified. Condition is Stable. Forms are Medication Reconciliation Form, Thank You Letter, Antibiotic Education, Prescription Opioid Use. Follow up: Private Physician; When: 2 - 3 days; Reason: Recheck today's complaints, Continuance of care, Re-evaluation by your physician. Follow up: Joshua Caldwell; When: 2 - 3 days; Reason: Recheck today's complaints, Continuance of care, Re-evaluation by your physician. Problem is new. Symptoms have improved. vandana
[2020-11-15 02:03] LABS: Urine Blood NEGATIVE (NEG); Urine Glucose NEGATIVE (NEG); Urine Protein NEGATIVE (NEG); Urine Specific Gravity >1.030 (1.005-1.030)
[2020-11-15 03:07] VITALS: BP 147/96; TEMP 98; O2SAT 97
--- NOTE | 2020-11-15 09:49 | RAD REPORT ---
EXAM DESCRIPTION: RAD - Chest Single View - 11/14/2020 11:27 pm CLINICAL HISTORY: COUGH, sore throat, fever, COVID negative COMPARISON: Portable January 2018 TECHNIQUE: AP portable chest image was obtained 11/14/2020 11:27 pm . FINDINGS: Lungs are clear. Heart and vasculature are normal. No measurable pleural effusion and no p neumothorax. No acute bony abnormality seen. No acute aortic findings suspected. IMPRESSION: No acute cardiopulmonary process. No significant change from comparison study.
--- NOTE | 2020-11-15 21:56 | RAD REPORT ---
EXAM DESCRIPTION: CT - Chest For Pe Angio - 11/15/2020 9:26 am CLINICAL HISTORY: Chest pain; Cough TECHNIQUE: Contiguous axial images obtained through the chest during angiographic phase following th e uneventful administration of IV contrast. Sagittal and coronal reformatted images were provided. ME P reformatted images were provided. This exam was performed according to our departmental dose-optimization program, which includes autom ated exposure control, adjustment of the mA and/or kV according to patient size and/or use of iterati ve reconstruction technique. COMPARISON: No prior exams provided for comparison. FINDINGS: Diagnostic quality: There is fair opacification of the pulmonary arterial tree. Motion art ifact degrades image quality and limits evaluation of segmental and subsegmental vessels. Lungs: No focal consolidation. Airways are patent. Pleura: No effusion. No pneumothorax. Heart and pericardium: The heart is enlarged. No pericardial effusion. Mediastinum and yvonne: No pathologically enlarged lymph nodes. Lower neck and chest wall: Unremarkable Vessels: No pulmonary arterial filling defects. No thoracic aortic aneurysm. Upper abdomen: The liver is enlarged and diffusely low in density compatible with steatosis. The gall bladder is contracted. Bones: Mild multilevel spondylosis. No acute fracture. IMPRESSION: 1. Somewhat suboptimal opacification of the pulmonary arterial tree as well as motion artifact which degrades image quality and limits evaluation of segmental and subsegmental vessels. No central pulmonary embolic disease identified. 2. Other findings as above. Electronically signed by: Magdalena Lewis MD 11/15/2020 1:03 AM ROLL REPAIRER Due to temporary technical issues with the PACS/Fluency reporting system, reports are being signed by the in house radiologists without review as a courtesy to insure prompt reporting. The interpreting radiologist is fully responsible for the content of the report.
--- NOTE | 2020-11-15 21:57 | RAD REPORT ---
EXAM DESCRIPTION: CT - Abdomen Pelvis W Contrast - 11/15/2020 9:27 am CLINICAL HISTORY: The patient is 40 years old and is Male; ABD PAIN TECHNIQUE: Axial computed tomography images of the abdomen and pelvis with intravenous contrast. S agittal and coronal reformatted images were created and reviewed. This CT exam was performed using one or more of the following dose reduction techniques: automated exposure control, adjustment of t he mA and/or kV according to patient size, and/or use of iterative reconstruction technique. COMPARISON: No relevant prior studies available. FINDINGS: LUNG BASES: Unremarkable. No mass. No consolidation. ABDOMEN: LIVER: The liver is mildly fatty. GALLBLADDER AND BILE DUCTS: The gallbladder is contracted. PANCREAS: No ductal dilation. No mass. SPLEEN: Unremarkable. ADRENALS: Unremarkable. No mass. KIDNEYS AND URETERS: Unremarkable. The kidneys enhance symmetrically. No obstructing renal or ure teral calculus is seen. No hydronephrosis or hydroureter. No perinephric fluid or stranding. STOMACH AND BOWEL: The stomach is distended with food contents. The small bowel is normal in christiano bobby. Stool is present throughout colon. There is no mucosal thickening or evidence of bowel obstructi on. PELVIS: APPENDIX: The appendix is surgically absent. BLADDER: The bladder is moderately distended. REPRODUCTIVE: Unremarkable as visualized. ABDOMEN and PELVIS: INTRAPERITONEAL SPACE: Unremarkable. No free air. No significant fluid collection. BONES/JOINTS: No acute fracture. SOFT TISSUES: The soft tissues are normal. VASCULATURE: Unremarkable. No abdominal aortic aneurysm. LYMPH NODES: Unremarkable. No enlarged lymph nodes. IMPRESSION: No acute findings on this contrasted CT of the abdomen and pelvis to explain the patient 's symptoms. Electronically signed by: Arlene Morley MD 11/15/2020 1:04 AM ENCHILADA MAKER Due to temporary technical issues with the PACS/Fluency reporting system, reports are being signed by the in house radiologists without review as a courtesy to insure prompt reporting. The interpreting radiologist is fully responsible for the content of the report.
== END 2020-11-15 02:58 | disposition home or self-care (01) ==
LOC: ER 20:20
DX: R50.9 Fever, unspecified (principal); R19.7 Diarrhea, unspecified; R10.819 Abdominal tenderness, unspecified site; F17.290 Nicotine dependence, other tobacco product, uncomplicated; Z20.822 Contact with and (suspected) exposure to COVID-19
CPT/HCPCS: 96365; 96367; 93005; 87040 ×2; 85025; 80048; 36415; 83735; 85610; 80076; 83605; 81003; 84484; 83690; 83880; 71275; 74177; 71045; 96375; 99284; 96366; U0003; Q9967

== ENCOUNTER 2022-02-06 10:28 | Emergency (ER) | payer BC ==
--- OUTSIDE RECORDS SUMMARY | 2022-02-06 10:31 | XMS REPORT | Continuity of Care Document ---
:1980 Author Organization [facility] t Address [address] [place] [address] Care Team Providers Name Role Phone Gabby Quispe Attending Clinician Unavailable GÓMEZ Attending Clinician Unavailable Lab, Fam Pob I Attending Clinician Unavailable Gómez COUGHLIN Attending Clinician Tate COUGHLIN Attending Clinician TATE Attending Clinician Unavailable KENIA Attending Clinician Unavailable FLORENCIA Attending Clinician Unavailable Gabby Quispe Admitting Clinician Unavailable Payers Payer Name Policy Type Policy Number Effective Date Expiration Date S neena [facility] [id number] 2015 00:00:00 Problems Condition Condition Condition Status Onset Resolution Last Treating Co mments Source Name Details Category Date Date Treatment Clinician Date No known No known Disease Unive rs active active ity of problems problems [facility] Malabsorpt Malabsorpt Problem Active U nivers ion due to ion due to it y of intoleranc intoleranc [place], not e, not Physici elsewhere elsewhere ans classified classified Malnutriti Malnutriti Problem Active U nivers on on ity of [place] Physici ans Allergies, Adverse Reactions, Alerts Allergy Allergy Status Severity Reaction(s) Onset Inactive Treating Comm ents Source Name Type Date Date Clinician SULFA Drug Active Unknown-Cmnt Univ ers (SULFONA Class 2-28 ity of MIDE 00:00: [place] ANTIBIOT 00 Medical ICS) Branch Sulfa Propensi Active Unknown - Since Unive rs (Sulfona ty to See comments 12-14 childhood ity of mide adverse 00:00: . [place] Antibiot reaction 00 Medica l ics) s Branch Sulfa Adverse Active Info Not [facility] Reaction Available [facility] Social History Social Habit Start Date Stop Date Quantity Comments Source Exposure to [facility]-CoV-2 [facility] [place] [facility] Smoking Status Start Date Stop Date Source Unknown if ever smoked [facility] Medications Ordered Filled Start Stop Current Ordering Indication Dosage Frequency Signature Comments Components Source Medication Medication Date Date Medication? Clinician (SIG) Name Name Pseudoeph-B Pseudoeph-B Yes Mihai not [facility] romphen-DM romphen-DM Catalan defined [facility] Azithromyci Azithromyci Yes Mihai not [facility] n n [place]an defined [facility] Vios Vios Yes Mihai not [facility] Aerosol Aerosol [place] defined [facility] Hydrocodone Hydrocodone Yes Mihai not [facility] -Acetaminop -Acetaminop [place]an defined [facility] Levothyroxi Levothyroxi Yes Mihai not [facility] ne Sodium ne Sodium Catalan defined [facility] Albuterol Albuterol Yes Mihai not [facility] Sulfate HFA Sulfate HFA Catalan defined [facility] Budesonide Budesonide Yes Mihai not [facility] Catalan defined [facility] No known No [facility] No known No [facility] No known No Univers medications [facility] No known No Univers medications [facility] Vital Signs Vital Name Observation Time Observation Value Comments Source Height 2019-09-28 11:46:00 63.5 [in_us] [facility] Weight 2019-09-28 11:46:00 284.4 [lb_av] [facility] Body Mass Index 2019-09-28 11:46:00 49.59 kg/m2 [facility] Calculated Physicians Procedures Procedure Date / Time Performing Clinician Source Performed [LH] CBC (without 2019-09-28 00:00:00 [facility] differential) Physicians [QL] COMPREHENSIVE 2019-09-28 00:00:00 [facility] METABOLIC PANEL W/O eGFR Physici ans [QLH] FOLATE, SERUM 2019-09-28 00:00:00 [facility] Physicians [QLH] HEMOGLOBIN A1c 2019-09-28 00:00:00 [facility] Physicians [QLH] IRON AND TOTAL 2019-09-28 00:00:00 [facility] IRON BINDING CAPACITY Physicians [QL] LIPID PANEL 2019-09-28 00:00:00 [facility] Physicians [QL] PTH, INTACT 2019-09-28 00:00:00 [facility] (WITHOUT CALCIUM) Physicians [QL] TSH, 3RD 2019-09-28 00:00:00 [facility] GENERATION Physicians [QL] VITAMIN A 2019-09-28 00:00:00 [facility] (RETINOL) Physicians [QL] VITAMIN B1, WHOLE 2019-09-28 00:00:00 [facility] BLOOD Physicians [QL] VITAMIN B12 2019-09-28 00:00:00 [facility] Physicians [QLH] VITAMIN D, 2019-09-28 00:00:00 [facility] 25-HYDROXY, LC/MS/MS Physicians [QL] VITAMIN E 2019-09-28 00:00:00 [facility] (TOCOPHEROL) Physicians Encounters Start End Encounter Admission Attending Care Care Encounter Source Date/Time Date/Time Type Type Clinicians Facility Department ID 2021-11-11 Outpatient [facility], [facility] [id number] [facility] [address] 12:44:53 [place] [id number] [facility] 2021-11-11 Outpatient Feaver, STLMLC ST[facility] [id number] [facility] 11:41:07 [place] [id number] [facility] 2021-04-29 2021-04-29 Outpatient STLMLC [facility] [id number] [facility] 2020-11-09 2020-11-[address] [facility] [id number] Univers 13:40:00 13:40:00 [id number] [facility] 2020-11-09 2020-11-09 [address] R [address]ÓMEZ [facility] [id number] Univers 13:40:00 13:40:00 PAULA [facility] 2020-11-09 2020-11-09 Laboratory Lab, [facility] 1..[id number] 11:12:58 11:32:58 Only Fam Pob I Health [id number] [place] [id number] Professio [phone] [place] [address] [address] 2020-11-09 2020-11-09 Laboratory Lab, [facility] Fam Pob I [facility] 1.. [id number] [facility] [place] [place] 11:12:58 11:32:58 Only Paula Martin [facility] [id number] [facility] [id number] Florentin as Professio [phone] Vt dical [address] Office [address] One 2020-08-26 2020-08-26 Outpatient STLMLC STLMLC [id number] [facility] 2020-08-20 2020-08-20 Outpatient STLMLC STLMLC [id number] [facility]00 [facility] 2020-08-11 2020-08-11 Outpatient STLMLC STLMLC [id number] [facility] 2020-06-11 2020-06-11 [facility] [id number] [address] 10:00:00 10:00:00 t [facility] Clin[facility] 2020-05-15 2020-05-15 Laboratory Lab, [facility] 1..[id number] 14:28:18 14:37:35 Only Fam Pob I Health [id number] [place] [id number] Professio [phone] nal [facility] Office Building One 2020-05-15 2020-05-15 Laboratory Lab, [facility] Fam Pob I [facility] 1.. [id number] Univers 14:28:18 14:37:35 Only Jasmin Ybarra [facility] [id number] ity [facility] [id number] Florentin as Bob [phone] Vt dical [place] [address] [address] 2020-05-15 2020-05-[address] [facility] [id number] Univers 14:20:00 14:20:00 JASMIN ity [facility] 2019-11-01 2019-11-01 Appointmen PAU [facility] [id number] Univers 14:30:00 14:30:00 t; THANIA Andrade ity of NATALEE [facility] [place], THANIA, Physi ci RD ans 2019-09-28 2019-09-28 Appointmen FLORENCIA, [facility] General [id number] Univers 11:00:00 11:00:00 t; BENJI, Surgery - ity of Radha DON [place] Florentin as Stacey LEBLANC.Pinky ans 2019-08-31 2019-08-[facility] FLORENCIA, [facility] [id number] Univers 09:00:00 09:00:00 t; BENJI, chelle o Radha DON [place] Stacey LEBLANC D.O. ans Results Test Description Test Time Test Comments Results Result Comments Source [LH] CBC (without differential) 2019-09-28 13:25:01 Test Item Value Reference Range Interpretation Comme nts WBC (test code = 6690-2) 5.7 {K/CMM} 3.7-10.4 RBC (test code = 789-8) 4.78 {M/CMM} 4.70-6.10 Hgb (test code = 718-7) 14.5 g/dl 14.0-18.0 Hct (test code = 32259-8) 44.0 % 42.0-54.0 MCV (test code = 787-2) 92.0 fL 80.0-94.0 MCH (test code = 785-6) 30.3 pg 27.0-31.0 MCHC (test code = 786-4) 32.9 g/dl 32.0-36.0 RDW (test code = 788-0) 13.3 % 11.5-14.5 Platelet (test code = 69046-6) 249 {K/CMM} 133-450 Mean Platelet Volume (test code = 60877-0) 7.6 fL 7.4-10.4 [facility] Physicians[REPLACED BY [facility]] PTH, INTACT (WITHOUT CALCIUM)2019-09-28 13:25:01 Test Item Value Reference Range Interpretation Comments Parathyroid Hormone Intact; Above 84.4 pg/ml 18.4-80.1 High Threshold (test code = 2731-8) [facility][REPLACED BY [facility]] HEMOGLOBIN [id number] 13:25:01 Test Item Value Reference Range Interpretation Comments Hemoglobin A1c; Above High Threshold 6.1 % <=5.6 (test code = 4548-4) [facility]] CMP [id number] 13:25:01 Test Item Value Reference Range Interpretation Comments Sodium Level 140 {mEq/l} 135-145 (test code = 2951-2) Potassium Level 4.3 {mEq/l} 3.5-5.1 (test code = 2823-3) Chloride Level 105 {mEq/l} 95-109 (test code = 5-0) Carbon Dioxide 29 {mEq/l} 24-32 (test code = 2027-9) AGAP (test code = 10.3 {mEq/l} 10.0-20.0 22547-2) Glucose Lvl (test 92 mg/dl 70-99 Adult refe rence range code = 2345-7) values reflec t the clinical guidel inesof the [place] Diabet es Association. Creatinine Lvl 1.10 mg/dl 0.50-1.40 (test code = 2160-0) Blood Urea 14 mg/dl 7-22 Nitrogen (test code = 3094-0) BUN/Creatinine 13 6-25 Ratio (test code = 3097-3) Total Protein 7.3 g/dl 6.4-8.4 (test code = 2885-2) Albumin Lvl (test 4.4 g/dl 3.5-5.0 code = 1751-7) Globulin (test 2.9 g/dl 2.7-4.2 code = 13980-7) A/G Ratio (test 1.5 0.7-1.6 code = 1759-0) Calcium Level 9.0 mg/dl 8.5-10.5 Total (test code = 84183-1) ALT (test code = 57 u/l 0-65 1743-4) AST (test code = 27 u/l 0-37 77869-6) Bili Total (test 0.2 mg/dl 0.2-1.3 code = 1975-2) Alk Phos (test 56 u/l 39-136 The pediatric reference code = 1783-0) ranges for th is test represent a CLSI-basedtrans ference of the CALIPER greg abase of pediatric refer ence intervals to e[employer] [place] analyzer (Clinical Biochemistry 46 (2013): 4344-1863). [facility] microDimensions [facility] has not internally validated these reference ranges and therefore they should be used only in th e context of a thoroughcl inical assessment. eGFR (test code = 85 The eGFR i s calculated 22954-8) {ML/MIN/1.7} using the CKD-E PI formula. In [...] be multiplied by t he estimated BMI. [facility][REPLACED BY [facility]] FOLATE, [id number] 13:25:01 Test Item Value Reference Range Interpretation Comments Folate Level (test code = 2284-8) 7.1 ng/ml >=3.0 [facility][REPLACED BY [facility]] IRON AND TOTAL IRON BINDING CAPACITY 2019-09-28 13:25:01 Test Item Value Reference Range Interpretation Comments Iron (test code = 2498-4) 67 ug/dL 45-160 % Satur Fe (test code = 2502-3) 18 % 12-57 TIBC (test code = 2500-7) 380 ug/dL 228-428 UIBC (test code = UIBC) 313 ug/dL 110-370 [facility][REPLACED BY [facility]] TSH, 3RD [id number] 13:25:01 Test Item Value Reference Range Interpretation Comments TSH (test code = 18925-7) 2.700 {uIU/ml} 0.360-3.740 [facility][REPLACED BY [facility]] VITAMIN [id number] 13:25:01 Test Item Value Reference Range Interpretation Comments Vitamin B12 Level (test code = 345 pg/ml 254-1320 2-9) [facility][REPLACED BY [facility]] LIPID [id number] 13:25:01 Test Item Value Reference Range Interpretation Comments Chol (test code = 168 mg/dl <=199 3-3) Trig; Above High 450 mg/dl <=149 Threshold (test code = 2571-8) HDL Cholesterol; 31 mg/dl >=61 Below Low Threshold (test code = 2085-9) CHD Risk (test 5.42 4.00-7.30 code = 25340-9) LDL (test code = See Note <=99 [place] [address]-9) calculated due to very high triglyceri xiomara (>400mg/dL). Re commend Direct LDL if c linically indicated. VLDL (test code = See Note VLDL - Cho lesterol level VLDL) cannot be accur ately calculated due to very hightriglycerid es (>400 mg/dL). [facility][REPLACED BY [facility]] VITAMIN D, 25-HYDROXY, LC/[id number] 13:25:01 Test Item Value Reference Range Interpretation Comments Vitamin D, 25-OH, 27.9 ng/ml 30.0-100.0 Reference range is based Total (test code on recommen dations in the = Vitamin D, EndocrineSociet y Clinical 25-OH, Total) Practice Guide line (J Clin Endocrinol Cthcy9501;96:19 11-1930) [facility][] Vitamin E [id number] 13:25:01 Test Item Value Reference Range Interpretation Comments Alpha-Tocoph 15.9 mg/L 5.9-19.4 This test was d eveloped and its orly (test performance code = characteristics determined by Alpha-Tocoph [facility]. It has not been cleared orly) orapproved by [facility] Food and Drug Administration. Gamma-Tocoph 2.3 mg/L 0.7-4.9 This test was d eveloped and its orly (test performance code = characteristics determined by Gamma-Tocoph [facility]. It has not been cleared orly) orapproved by [facility] Food and Drug Administration. Reference intervals for a lpha and gamma-tocophero ldetermined from National Health and Nutrition ExaminationSurv , 0540-9361. Individuals wit h alpha-tocophero l levelsless than 5.0 mg/L are co nsidered vitamin E deficient.Per formed At: [facility] [id number] Artemio BUCKNER Ph:[phone] [facility][H] Vit [id number] 13:25:01 Test Item Value Reference Range Interpretation [...] the Food and Drug Administration. Performed At: [facility] [id number] ra Artemio BUCKNER Ph:[phone] [facility] Physicians[QLH] VITAMIN B1, WHOLE [id number] 13:25:01 Test Item Value Reference Range Interpretation Comments Vitamin B1 108.6 66.5-200.0 This test was d eveloped and its Level (test nmol/L performance code = characteristics determined by Vitamin B1 [facility]. It has not been Level) cleared orappro samara by the Food and Drug Administration. Performed At: [facility] [id number] Ulloa MD Ph:[phone] [facility]
[2022-02-06] MEDS ORDERED: HYDROCODONE/APAP 10/325 TAB ONE (10:59)
[2022-02-06] MEDS ORDERED: dexAMETHasone 10 MG/ML VIAL ONE (10:59)
[2022-02-06] MEDS ORDERED: KETOROLAC 30 MG/ML INJ ONE (11:00)
--- NOTE | 2022-02-06 11:40 | RAD REPORT ---
EXAM DESCRIPTION: RAD - Foot Left 3 View - 02/06/2022 11:32 am CLINICAL HISTORY: PAIN COMPARISON: Foot Left 3 View dated 04/15/2021 FINDINGS: Small plantar calcaneal spur is noted. Mild soft tissue swelling is seen along the dorsum of the forefoot. No acute fracture or dislocation seen.
--- NOTE | 2022-02-06 11:47 | EDPHYS ---
Physician Documentation [facility] Name: Holger Fair Age: 42 yrs Sex: Male : 1980 Arrival Date: 02/06/2022 Time: 10:31 Bed 5 Private MD: ED Physician Tammy Vela HPI: 02/06 10:51 This 42 yrs old Male presents to ER via Ambulatory with complaints of Foot Pain. pm1 10:51 The patient presents with pain, that is acute, swelling. The complaints affect the MTP pm1 left first joint. Context: The problem was sustained at home, resulted from an unknown cause, the patient can fully bear weight, the patient is able to ambulate, Problem is a result from a previous injury: No. Onset: The symptoms/episode began/occurred yesterday. Modifying factors: The symptoms are alleviated by nothing. the symptoms are aggravated by nothing. Associated signs and symptoms: Pertinent negatives fever, numbness, tingling. Treatment prior to arrival includes: no previous treatment. Severity of symptoms: in the emergency department the symptoms are actually worse. The patient has experienced a previous episode, approximately 5 weeks ago. The patient has not recently seen a physician. Patient reports father has a history of gout and is concerned that he may have it also. Historical: - Allergies: 10:40 Sulfa (Sulfonamide Antibiotics); vg1 - Home Meds: 10:40 None [Active]; vg1 - PMHx: 10:40 Glaucoma; vg1 - PSHx: 10:40 Appendectomy; vg1 - Immunization history:: Client reports having NOT received the Covid vaccine. - Social history:: Smoking status: Reported history of juuling and/or vaping. ROS: 10:51 Constitutional: Negative for fever, chills, and weight loss, Cardiovascular: Negative pm1 for chest pain, palpitations, and edema, Respiratory: Negative for shortness of breath, cough, wheezing, and pleuritic chest pain. 10:51 Skin: Negative for injury, rash, and discoloration, Neuro: Negative for headache, weakness, numbness, tingling, and seizure. 10:51 MS/extremity: Positive for pain, swelling, tenderness, of the left 1st MTP joint, Negative for injury or acute deformity, decreased range of motion, deformity. 10:51 All other systems are negative. Exam: 10:51 Constitutional: This is a well developed, well nourished patient who is awake, alert, pm1 and in no acute distress. Head/Face: Normocephalic, atraumatic. 10:51 Skin: Warm, dry with normal turgor. Normal color with no rashes, no lesions, and no evidence of cellulitis. 10:51 Cardiovascular: Exam negative for acute changes, Rate: normal, Rhythm: regular, Pulses: no pulse deficits are appreciated, Heart sounds: normal. 10:51 Respiratory: Exam negative for acute changes, respiratory distress, shortness of breath, Breath sounds: are clear throughout. 10:51 Musculoskeletal/extremity: Extremities: grossly normal except: noted in the 1st MTP joint: ROM: intact in all extremities, Circulation is intact in all extremities. Sensation intact. 10:51 Neuro: Exam negative for acute changes, Orientation: is normal, Mentation: is normal, Motor: is normal, moves all fours. Vital Signs: 10:36 BP 142 / 94; Pulse 90; Resp 18; Temp 98.6; Pulse Ox 100% ; Weight 124.28 kg; Height 5 vg1 ft. 6 in. (167.64 cm); Pain 10/10; 11:18 BP 127 / 85; Pulse 73; Resp 18 S; Pulse Ox 97% on R/A; Pain 10/10; jg9 11:45 BP 135 / 74; Pulse 67; Resp 14; Pulse Ox 98% on R/A; jg9 10:36 Body Mass Index 44.22 (124.28 kg, 167.64 cm) vg1 MDM: 10:43 Patient medically screened. pm1 11:46 Data reviewed: vital signs. Data interpreted: Pulse oximetry: on room air is 97 %. pm1 Interpretation: normal. Counseling: I had a detailed discussion with the patient and/or guardian regarding: the historical points, exam findings, and any diagnostic results supporting the discharge/admit diagnosis, lab results, radiology results, the need for outpatient follow up, a family practitioner, to return to the emergency department if symptoms worsen or persist or if there are any questions or concerns that arise at home. 02/06 10:51 Order name: Uric Acid; Complete Time: 11:20 pm1 02/06 10:51 Order name: Foot Left 3 View XRAY; Complete Time: 11:46 pm1 Administered Medications: 11:03 Drug: Decadron (dexamethasone) 10 mg Route: IM; Site: right gluteus; ww 11:18 Follow up: Response: No adverse reaction; Pain is unchanged, physician notified jg9 11:05 Drug: Sturgis (HYDROcodone-acetaminophen) 10 mg-325 mg 1 tabs Route: PO; ww 11:18 Follow up: Response: No adverse reaction; Pain is unchanged, physician notified jg9 11:05 Drug: Ketorolac 60 mg Route: IM; Site: right gluteus; ww 11:18 Follow up: Response: No adverse reaction; Pain is unchanged, physician notified jg9 Disposition Summary: 02/06/22 11:47 Discharge Ordered Location: Home pm1 Problem: new pm1 Symptoms: have improved pm1 Condition: Stable pm1 Diagnosis - Gout, unspecified pm1 Followup: pm1 - With: Emergency Department - When: As needed - Reason: Worsening of condition Followup: pm1 - With: Private Physician - When: 2 - 3 days - Reason: Recheck today's complaints, Continuance of care, Re-evaluation by your physician Discharge Instructions: - Discharge Summary Sheet pm1 - Gout pm1 - Low-Purine Eating Plan pm1 Forms: - Medication Reconciliation Form pm1 - Thank You Letter pm1 - Antibiotic Education pm1 - Prescription Opioid Use pm1 - Work release form eb Prescriptions: - Medrol (Luis Daniel) 4 mg Oral Tablets, Dose Pack - take 1 tablet by ORAL route as directed - follow package instructions; 1 pm1 packet; Refills: 0, Product Selection Permitted - Tylenol-Codeine #3 300 mg-30 mg Oral - take 2 tablet by ORAL route every 6 hours As needed; 20 tablet; Refills: 0, pm1 Product Selection Permitted - indomethacin 50 mg Oral capsule - take 1 capsule by ORAL route 3 times per day As needed with food; 15 capsule; pm1 Refills: 0, Product Selection Permitted Signatures: Dispatcher [employer] Tex Lyons NP SALES PROPERTY MANAGER pm1 Ani Maddox, RN RN vg1 Bridget Hurd RN RN ww Frannie Guadarrama RN jg9
--- NOTE | 2022-02-06 11:47 | ER ---
Nurse's Notes [facility] Name: Holger Fair Age: 42 yrs Sex: Male : 1980 Arrival Date: 02/06/2022 Time: 10:31 Bed 5 Private MD: Diagnosis: Gout, unspecified Presentation: 02/06 10:36 Chief complaint: Patient states: Left foot pain that has been going on for about a vg1 month; states "I think it my be gout; its very uncomfortable and hurts really bad" Pt denies any injury to Left foot. Coronavirus screen: Vaccine status: Patient reports being unvaccinated. Client denies travel out of the [place] in the last 14 days. Ebola Screen: Patient negative for fever greater than or equal to 101.5 degrees Fahrenheit, and additional compatible Ebola Virus Disease symptoms. Initial Sepsis Screen: Does the patient meet any 2 criteria? No. Patient's initial sepsis screen is negative. Does the patient have a suspected source of infection? No. Patient's initial sepsis screen is negative. Risk Assessment: Do you want to hurt yourself or someone else? Patient reports no desire to harm self or others. Onset of symptoms was February 06, 2022. 10:36 Method Of Arrival: Ambulatory vg1 10:36 Acuity: SHIVAM 4 vg1 Triage Assessment: 10:40 General: Appears in no apparent distress. uncomfortable, Behavior is calm, cooperative. vg1 Pain: Complains of pain in left foot. Musculoskeletal: Circulation, motion, and sensation intact. Historical: - Allergies: 10:40 Sulfa (Sulfonamide Antibiotics); vg1 - Home Meds: 10:40 None [Active]; vg1 - PMHx: 10:40 Glaucoma; vg1 - PSHx: 10:40 Appendectomy; vg1 - Immunization history:: Client reports having NOT received the Covid vaccine. - Social history:: Smoking status: Reported history of juuling and/or vaping. Screenin:06 Abuse screen: Denies threats or abuse. Denies injuries from another. Nutritional ww screening: No deficits noted. Nutritional screening: No deficits noted. Tuberculosis screening: No symptoms or risk factors identified. Fall Risk None identified. Assessment: 11:06 General: Appears in no apparent distress. Behavior is calm, cooperative. Pain: ww Complains of pain in left foot Pain began 3 to 4 weeks. Neuro: Level of Consciousness is awake, alert, obeys commands, Oriented to person, place, time, situation, Moves all extremities. Speech is normal. Cardiovascular: Capillary refill < 3 seconds Patient's skin is warm and dry. Chest pain is denied. Respiratory: Airway is patent Respiratory effort is even, unlabored, Respiratory pattern is regular, symmetrical. GI: No signs and/or symptoms were reported involving the gastrointestinal system. : No signs and/or symptoms were reported regarding the genitourinary system. Derm: Skin is intact, is healthy with good turgor, Skin is pink, warm \\T\\ dry. Musculoskeletal: Swelling present in left foot. 11:30 Reassessment: Patient states feeling better. Patient states symptoms have improved. jg9 Vital Signs: 10:36 BP 142 / 94; Pulse 90; Resp 18; Temp 98.6; Pulse Ox 100% ; Weight 124.28 kg; Height 5 vg1 ft. 6 in. (167.64 cm); Pain 10/10; 11:18 BP 127 / 85; Pulse 73; Resp 18 S; Pulse Ox 97% on R/A; Pain 10/10; jg9 11:45 BP 135 / 74; Pulse 67; Resp 14; Pulse Ox 98% on R/A; jg9 10:36 Body Mass Index 44.22 (124.28 kg, 167.64 cm) vg1 ED Course: 10:31 Patient arrived in ED. rg4 10:40 Triage completed. vg1 10:40 Arm band placed on. vg1 10:42 Tex Tran NP is PHCP. pm1 10:42 Tammy Vela MD is Attending Physician. pm1 10:43 Bridget Hurd, RN is Primary Nurse. ww 11:06 Patient has correct armband on for positive identification. Bed in low position. Call ww light in reach. Side rails up X 1. youth nutritional monitor on. Pulse ox on. NIBP on. Warm blanket given. 11:34 Foot Left 3 View XRAY In Process Unspecified. EDMS 12:05 No provider procedures requiring assistance completed. jg9 12:06 Patient did not have IV access during this emergency room visit. jg9 Administered Medications: 11:03 Drug: Decadron (dexamethasone) 10 mg Route: IM; Site: right gluteus; ww 11:18 Follow up: Response: No adverse reaction; Pain is unchanged, physician notified jg9 11:05 Drug: [place] (HYDROcodone-acetaminophen) 10 mg-325 mg 1 tabs Route: PO; ww 11:18 Follow up: Response: No adverse reaction; Pain is unchanged, physician notified jg9 11:05 Drug: Ketorolac 60 mg Route: IM; Site: right gluteus; ww 11:18 Follow up: Response: No adverse reaction; Pain is unchanged, physician notified jg9 Outcome: 11:47 Discharge ordered by MD. pm1 12:05 Discharged to home ambulatory. jg9 12:05 Condition: stable 12:05 Discharge instructions given to patient, Instructed on discharge instructions, follow up and referral plans. Demonstrated understanding of instructions, follow-up care, Prescriptions given X 3. 12:06 Patient left the ED. jg9 Signatures: Dispatcher [employer] EDMS Tex Tran, [employer] WORK[employer] pm1 Socorro Maddox rg4 Ani Maddox RN RN vg1 Frannie Guadarrama RN RN jg9 Bridget Hurd RN RN ww
[2022-02-06 12:21] VITALS: TEMP 98.6
[2022-02-06 12:30] VITALS: BP 135/74; O2SAT 98
== END 2022-02-06 12:06 | disposition home or self-care (01) ==
LOC: ER 10:28
DX: M10.9 Gout, unspecified (principal); Z88.2 Allergy status to sulfonamides
CPT/HCPCS: 36415; 84550; 73630; 96372; 99284; J1100

== ENCOUNTER 2022-11-04 07:43 | Observation (INO) | payer BC ==
--- OUTSIDE RECORDS SUMMARY | 2022-11-04 07:49 | XMS REPORT | Continuity of Care Document ---
:1980 Author Organization [facility] t Address [address] [place] [address] Care Team Providers Name Role Phone Bryan Quispe Attending Clinician Unavailable PAULA MAGAÑA Attending Clinician Unavailable Lab, Adc Fam Pob I Attending Clinician Unavailable Paula Rogel Attending Clinician Jasmin Quinones Attending Clinician JASMIN YBARRA Attending Clinician Unavailable THANIA AQUINO RD Attending Clinician Unavailable BENJI DON D.O. Attending Clinician Unavailable Bryan Quispe Admitting Clinician Unavailable Payers Payer Name Policy Type Policy Number Effective Date Expiration Date S ource Blue Cross C1 [id number] Common Spiri t Blue [facility] [id number] 2015 00:00:00 Blue Cross and C1 [id number] Common S pirit Blue [facility] Blue Cross and C1 [id number] Common S pirit [facility] Blue Cross and C1 [id number] Common S pirit [facility] Problems Condition Condition Condition Status Onset Resolution Last Treating Co mments Source Name Details Category Date Date Treatment Clinician Date [id number] Primary Problem Active Comm on osteoarthr Spirit itis [facility] right knee [facility] [id number] Primary Problem Active Comm on osteoarthr Spirit itis [facility] left knee [facility] No known No known Disease Unive rs active active ity of problems problems [facility] 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 [place] Antibiot reaction 00 Medica l ics) s Branch Social History Social Habit Start Date Stop Date Quantity Comments Source History of Tobacco Use Co mmon [facility] Sex Assigned At Com [facility] Exposure to SARS-CoV-2 Yes Un [facility] (event) Medical Branch Smoking Status Start Date Stop Date Source Never Smoker Common [facility] Unknown if ever smoked [facility] Medications Ordered Filled Start Stop Current Ordering Indication Dosage Frequency Signature Comments Components Source Medication Medication Date Date Medication? Clinician (SIG) Name Name traMADol traMADol 2019-10 No 1{table traMADol HCl 50 MG HCl 50 MG 0-26 t} HCl 50 MG 00:00: 00 Tramadol Tramadol 2019-10 No 1{table Tramadol HCl 50 MG HCl 50 MG 0-26 t} HCl 50 MG 00:00: 00 Tramadol Tramadol 2019-10 No 1{table Tramadol HCl 50 MG HCl 50 MG 0-26 t} HCl 50 MG 00:00: 00 Tramadol Tramadol 2019-10 No 1{table Tramadol HCl 50 MG HCl 50 MG 0-26 t} HCl 50 MG 00:00: 00 Meloxicam Meloxicam 2019-10 2020- No 1{table QD Meloxicam 7.5 MG 7.5 MG 0-26 11-24 t} 7.5 MG 00:00: 00:00 00 :00 Meloxicam Meloxicam 2019-10 2020- No 1{table QD Meloxicam 7.5 MG 7.5 MG 0-11 09-24 t} 7.5 MG 00:00: 00:00 00 :00 Meloxicam Meloxicam 2019-10 2020- No 1{table QD Meloxicam 7.5 MG 7.5 MG 0-24 t} 7.5 MG 00:00: 00:00 00 :00 Pseudoeph-B Pseudoeph-B Yes Mihai not Common romphen-DM romphen-DM Catalan defined [facility] Azithromyci Azithromyci Yes Mihai not Common n n Catalan defined [facility] Vios Vios Yes Mihai not Common Aerosol Aerosol Catalan defined [facility] Delivery Delivery [facility] System System [facility] Hydrocodone Hydrocodone Yes Mihai not Common -Acetaminop -Acetaminop Catalan defined [facility] Levothyroxi Levothyroxi Yes Mihai not Common ne Sodium ne Sodium Catalan defined jaimee [facility] Albuterol Albuterol Yes Mihai not Co mmon Sulfate HFA Sulfate HFA Catalan defined [facility] Budesonide Budesonide Yes Mihai not Common Catalan defined [facility] Pseudoeph-B Pseudoeph-B No Pseudoeph- romphen-DM romphen-DM Bromphen-D M Azithromyci Azithromyci No Azithromyc n n in Vios Vios No Vios Aerosol Aerosol Aerosol Delivery Delivery Delivery System System System Budesonide Budesonide No Budesonide Levothyroxi Levothyroxi No Levothyrox ne Sodium ne Sodium ine Sodium Hydrocodone Hydrocodone No Hydrocodon -Acetaminop -Acetaminop e-Acetamin hen hen ophen Albuterol Albuterol No Albuterol Sulfate HFA Sulfate HFA Sulfate HFA Vios Vios No Vios Aerosol Aerosol Aerosol Delivery Delivery Delivery System System System Azithromyci Azithromyci No Azithromyc n n in Albuterol Albuterol No Albuterol Sulfate HFA Sulfate HFA Sulfate HFA Hydrocodone Hydrocodone No Hydrocodon -Acetaminop -Acetaminop e-Acetamin hen hen ophen Budesonide Budesonide No Budesonide Pseudoeph-B Pseudoeph-B No Pseudoeph- romphen-DM romphen-DM Bromphen-D M Levothyroxi Levothyroxi No Levothyrox ne Sodium ne Sodium ine Sodium Budesonide Budesonide No Budesonide Levothyroxi Levothyroxi No Levothyrox ne Sodium ne Sodium ine Sodium Vios Vios No Vios Aerosol Aerosol Aerosol Delivery Delivery Delivery System System System Hydrocodone Hydrocodone No Hydrocodon -Acetaminop -Acetaminop e-Acetamin hen hen ophen Albuterol Albuterol No Albuterol Sulfate HFA Sulfate HFA Sulfate HFA Pseudoeph-B Pseudoeph-B No Pseudoeph- romphen-DM romphen-DM Bromphen-D M Azithromyci Azithromyci No Azithromyc n n in Budesonide Budesonide No Budesonide Vios Vios No Vios Aerosol Aerosol Aerosol Delivery Delivery Delivery System System System HYDROcodone HYDROcodone No HYDROcodon -Acetaminop -Acetaminop e-Acetamin hen hen ophen Levothyroxi Levothyroxi No Levothyrox ne Sodium ne Sodium ine Sodium Albuterol Albuterol No Albuterol Sulfate HFA Sulfate HFA Sulfate HFA Pseudoeph-B Pseudoeph-B No Pseudoeph- romphen-DM romphen-DM Bromphen-D M Azithromyci Azithromyci No Azithromyc n n in No known No Univers medications [facility] No known No Univers medications [facility] No known No Univers medications [facility] No known No Univers medications [facility] Immunizations Ordered Immunization Filled Immunization Date Status Commen ts Source Name Name Hyalgan 20 mg Hyalgan 20 mg 2020-08-26 Completed Common S pirit :: [facility] Hyalgan 20 mg Hyalgan 20 mg 2020-08-26 Completed Common S pirit :: [facility] Hyalgan 20 mg Hyalgan 20 mg 2020-08-26 Completed Common S pirit 09:: [facility] Hyalgan 20 mg Hyalgan 20 mg 2020-08-26 Completed Common S pirit ::00 [facility] Hyalgan 20 mg Hyalgan 20 mg 2020-08-20 Completed Common S pirit 10:56:00 [facility] Hyalgan 20 mg Hyalgan 20 mg 2020-08-20 Completed Common S pirit 10:56:00 [facility] Hyalgan 20 mg Hyalgan 20 mg 2020-08-20 Completed Common S pirit 10:56:00 [facility] Hyalgan 20 mg Hyalgan 20 mg 2020-08-20 Completed Common S pirit 10:55:00 [facility] Bupivicaine Waverly Bupivicaine Waverly 2020-08-20 Completed [facility] 10:55:00 [facility] Hyalgan 20 mg Hyalgan 20 mg 2020-08-20 Completed Common S pirit 10:55:00 [facility] Bupivicaine [place] Bupivicaine [place]ly 2020-08-20 Completed [facility] 10:55:00 [facility] Hyalgan 20 mg Hyalgan 20 mg 2020-08-20 Completed Common S pirit 10:55:00 [facility] Bupivicaine [place]ly Bupivicaine [place]ly 2020-08-20 Completed [facility] 10:55:00 [facility] Kenalog Kenalog 2020-08-20 Completed [facility] (Triamcinolone) (Triamcinolone) 10:54:00 [facility] Kenalog Kenalog 2020-08-20 Completed [facility] (Triamcinolone) (Triamcinolone) 10:54:00 [facility] Bupivicaine [place]averly Bupivicaine Waverly 2020-08-20 Completed [facility] 10:54:00 [facility] Bupivicaine [place] Bupivicaine [place]ly 2020-08-20 Completed [facility] 10:54:00 [facility] Kenalog Kenalog 2020-08-20 Completed [facility] (Triamcinolone) (Triamcinolone) 10:54:00 [facility] Kenalog Kenalog 2020-08-20 Completed [facility] (Triamcinolone) (Triamcinolone) 10:54:00 [facility] Kenalog Kenalog 2020-08-20 Completed [facility] (Triamcinolone) (Triamcinolone) 10:54:00 - I [facility] Kenalog Kenalog 2020-08-20 Completed [facility] (Triamcinolone) (Triamcinolone) 10:54:00 - I [facility] Bupivicaine Waverly Bupivicaine Waverly 2020-08-20 Completed [facility] 10:54:00 - [facility] Bupivicaine [place]ly Bupivicaine W[place]ly 2020-06-11 Completed [facility] 10:53:00 - [facility] Bupivicaine [place] Bupivicaine [place]ly 2020-06-11 Completed [facility] 10:53:00 - [facility] Kenalog Kenalog 2020-06-11 Completed [facility] (Triamcinolone) (Triamcinolone) 10:53:00 - [facility] Bupivicaine [place]ly Bupivicaine Waverly 2020-06-11 Completed [facility] 10:53:00 - [facility] Bupivicaine [place] Bupivicaine [place]ly 2020-06-11 Completed [facility] 10:53:00 - [facility] Kenalog Kenalog 2020-06-11 Completed [facility] (Triamcinolone) (Triamcinolone) 10:53:00 - [facility] Bupivicaine [place]averly Bupivicaine Waverly 2020-06-11 Completed [facility] 10:53:00 - [facility] Bupivicaine [place] Bupivicaine [place]ly 2020-06-11 Completed [facility] 10:53:00 - [facility] Kenalog Kenalog 2020-06-11 Completed [facility] (Triamcinolone) (Triamcinolone) 10:53:00 - [facility] Bupivicaine [place]ly Bupivicaine Waverly 2020-06-11 Completed [facility] 10:53:00 - [facility] Bupivicaine [place] Bupivicaine [place]ly 2020-06-11 Completed [facility] 10:53:00 - [facility] Kenalog Kenalog 2020-06-11 Completed [facility] (Triamcinolone) (Triamcinolone) 10:53:00 - [facility] Kenalog Kenalog 2020-06-11 Completed [facility] (Triamcinolone) (Triamcinolone) 10:52:00 - [facility] 2020-06-11 Completed [facility] (Triamcinolone) (Triamcinolone) 10:52:00 - [facility] 2020-06-11 Completed [facility] (Triamcinolone) (Triamcinolone) 10:52:00 - [facility] 2020-06-11 Completed [facility] (Triamcinolone) (Triamcinolone) 10:52:00 [facility] Vital Signs Vital Name Observation Time Observation Value Comments Source height 2020-08-26 09:00:00 66 [in_i] Common [facility] weight 2020-08-26 09:00:00 242 [lb_av] [facility] temperature 2020-08-26 09:00:00 97.3 [degF] Common [facility] bmi 2020-08-26 09:00:00 39.06 kg/m2 [facility] blood pressure 2020-08-26 09:00:00 132 mm[Hg] [facility] - systolic [facility] blood pressure 2020-08-26 09:00:00 84 mm[Hg] [facility] - diastolic [facility] height 2020-08-20 11:00:00 66 [in_i] Common [facility] weight 2020-08-20 11:00:00 242 [facility]_av[facility] temperature 2020-08-20 11:00:00 97.3 [degF] Common S pirit [facility] bmi 2020-08-20 11:00:00 39.06 kg/m2 Common S [facility] blood pressure 2020-08-20 11:00:00 124 mm[Hg] [facility] - systolic [facility] blood pressure 2020-08-20 11:00:00 82 mm[Hg] [facility] - diastolic [facility] height 2020-08-11 10:00:00 66 [in_i] Common S pirit [facility] weight 2020-08-11 10:00:00 242 [lb_av] Common [facility] temperature 2020-08-11 10:00:00 97.3 [degF] Common [facility] bmi 2020-08-11 10:00:00 39.06 kg/m2 Common [facility] blood pressure 2020-08-11 10:00:00 118 mm[Hg] [facility] - systolic [facility] blood pressure 2020-08-11 10:00:00 80 mm[Hg] [facility] - diastolic [facility] Height 2019-09-28 11:46:00 63.5 [in_us] [facility] Weight 2019-09-28 11:46:00 284.4 [lb_av] [facility] Body Mass Index 2019-09-28 11:46:00 49.59 kg/m2 [facility] Calculated Procedures Procedure Date / Time Performed Performing Clinician Sourc e [LH] CBC (without 2019-09-28 00:00:00 [facility] differential) [QL] COMPREHENSIVE METABOLIC 2019-09-28 00:00:00 [facility] PANEL W/O eGFR [QLH] FOLATE, SERUM 2019-09-28 00:00:00 [facility] [QLH] HEMOGLOBIN A1c 2019-09-28 00:00:00 [facility] [QLH] IRON AND TOTAL IRON 2019-09-28 00:00:00 [facility] BINDING CAPACITY [QLH] LIPID PANEL 2019-09-28 00:00:00 [facility] [QLH] PTH, INTACT (WITHOUT 2019-09-28 00:00:00 [facility] CALCIUM) [QLH] TSH, 3RD GENERATION 2019-09-28 00:00:00 [facility] [QLH] VITAMIN A (RETINOL) 2019-09-28 00:00:00 [facility] [QLH] VITAMIN B1, WHOLE 2019-09-28 00:00:00 [facility] BLOOD [QLH] VITAMIN B12 2019-09-28 00:00:00 [facility] [QLH] VITAMIN D, 25-HYDROXY, 2019-09-28 00:00:00 [facility] LC/MS/MS [QLH] VITAMIN E (TOCOPHEROL) 2019-09-28 00:00:00 [facility] Encounters Start End Encounter Admission Attending Care Care Encounter Source Date/Time Date/Time Type Type Clinicians Facility Department ID 2021-11-11 Outpatient VARUN Quisep STALTON [id number] Common 12:44:53 Bryan 139[address] [facility] 2021-11-11 Outpatient VARUN Quispe [id number] Common 11:41:07 Bryan [id number] [facility] 2021-04-29 2021-04-29 (TEL) [facility] STLMLC [id number] Co mmon 00:00:00 00:00:00 [facility] 2020-11-09 2020-11-09 Outpatient R GÓMEZ [facility] [id number] Univers 13:40:00 13:40:00 PAULA ity of [facility] 2020-11-09 2020-11-09 Laboratory Lab, [facility] Fam Pob I [facility] 1.2. [id number] [facility] 11:12:58 11:32:58 Only Gómez [facility] [id number] ity [facility] [id number] Florentin as Professio [phone] Nd dical [address] Office [address] 2020-11-09 2020-11-09 Laboratory Lab, [facility] [id number] 11:12:58 11:32:58 Only Fam Pob I Health [id number] [place] [id number] Professio [phone] nal [facility] Office [address] 2020-08-26 2020-08-26 (IN/ASP) STLMLC STLMLC [id number] C ommon 00:00:00 00:00:00 INJ ASP Spirit [facility] 2020-08-20 2020-08-20 (IN/ASP) STLMLC STLMLC [id number] C ommon 00:00:00 00:00:00 INJ ASP [facility] 2020-08-11 2020-08-11 OFFICE STLMLC STLMLC [id number] Co mmon 00:00:00 00:00:00 VISIT EST Spir it PT LEVEL 3 - [facility] 2020-06-11 2020-06-11 Outpatient [id number] Common 10:00:00 10:00:00 t [facility] 2020-05-15 2020-05-15 Laboratory Lab, [facility] Fam Pob I [facility] 1.2. [id number] Univers 14:28:18 14:37:35 Only Jasmin Ybarra [facility] [id number] ity [facility] [id number] Florentin as Professio [phone] Nd dical [place] [address] [address] 2020-05-15 2020-05-15 Laboratory Lab, [facility] [id number] 14:28:18 14:37:35 Only Fam Pob I Health [id number] [place] [id number] Professio [phone] nal [facility] Office [address] 2020-05-15 2020-05-15 Outpatient R ROSE MARIE [facility] [id number] Univers 14:20:00 14:20:00 JASMIN ity of [facility] 2019-11-01 2019-11-01 Appointsharmaine [facility] [id number] [place] 14:30:00 14:30:00 t; THANIA Andrade, Phys shannan [address] ans [address] 2019-09-28 2019-09-28 AppointFAINA [facility] [id number] [place] 11:00:00 11:00:00 t; Veronika LEBLANC - Maddie DON D.O. [place] ans Radha LEBLANC 2019-08-31 2019-08-31 Appointsharmaine DON, FAINA [facility] [id number] [place] 09:00:00 09:00:00 t; Palma LEBLANC D.O. ans Radha LEBLANC Results Test Description Test Time Test Comments Results Result Comments Source [LH] CBC (without differential) 2019-09-28 13:25:01 Test Item Value Reference Range Interpretation Comme nts WBC (test code = 6690-2) 5.7 {K/CMM} 3.7-10.4 RBC (test code = 789-8) 4.78 {M/CMM} 4.70-6.10 Hgb (test code = 718-7) 14.5 g/dl 14.0-18.0 Hct (test code = 14214-1) 44.0 % 42.0-54.0 MCV (test code = 787-2) 92.0 fL 80.0-94.0 MCH (test code = 785-6) 30.3 pg 27.0-31.0 MCHC (test code = 786-4) 32.9 g/dl 32.0-36.0 RDW (test code = 788-0) 13.3 % 11.5-14.5 Platelet (test code = 78986-9) 249 {K/CMM} 133-450 Mean Platelet Volume (test code = 31803-6) 7.6 fL 7.4-10.4 [facility][QL] PTH, INTACT (WITHOUT CALCIUM)2019-09-28 13:25:01 Test Item Value Reference Range Interpretation Comments Parathyroid Hormone Intact; Above 84.4 pg/ml 18.4-80.1 High Threshold (test code = 2731-8) [facility][QL] HEMOGLOBIN [id number] 13:25:01 Test Item Value Reference Range Interpretation Comments Hemoglobin A1c; Above High Threshold 6.1 % <=5.6 (test code = 4548-4) [facility][QL] CMP [id number] 13:25:01 Test Item Value Reference Range Interpretation Comments Sodium Level 140 {mEq/l} 135-145 (test code = 2951-2) Potassium Level 4.3 {mEq/l} 3.5-5.1 (test code = 2823-3) Chloride Level 105 {mEq/l} 95-109 (test code = 5-0) Carbon Dioxide 29 {mEq/l} 24-32 (test code = 2027-9) AGAP (test code = 10.3 {mEq/l} 10.0-20.0 57547-3) Glucose Lvl (test 92 mg/dl 70-99 Adult refe rence range code = 2345-7) values reflec t the clinical guidel inesof the [place] Diabet es Association. Creatinine Lvl 1.10 mg/dl 0.50-1.40 (test code = 2160-0) Blood Urea 14 mg/dl 7-22 Nitrogen (test code = 3094-0) BUN/Creatinine 13 6-25 Ratio (test code = 3097-3) Total Protein 7.3 g/dl 6.4-8.4 (test code = 2885-2) Albumin Lvl (test 4.4 g/dl 3.5-5.0 code = 1751-7) Globulin (test 2.9 g/dl 2.7-4.2 code = 99843-7) A/G Ratio (test 1.5 0.7-1.6 code = 1759-0) Calcium Level 9.0 mg/dl 8.5-10.5 Total (test code = 88777-6) ALT (test code = 57 u/l 0-65 1743-4) AST (test code = 27 u/l 0-37 19321-6) Bili Total (test 0.2 mg/dl 0.2-1.3 code = 1975-2) Alk Phos (test 56 u/l 39-136 The pediatric reference code = 1783-0) ranges for th is test represent a CLSI-basedtrans ference of the CALIPER greg abase of pediatric refer ence intervals to e[employer] [place] analyzer (Clinical Biochemistry 46 (2013): 5893-1747). [facility] has not internally validated these reference ranges and therefore they should be used only in th e context of a thoroughcl inical assessment. eGFR (test code = 85 The eGFR i s calculated 84225-0) {ML/MIN/1.7} using the CKD-E PI formula. In [...] be multiplied by t he estimated BMI. [facility][QLH] FOLATE, [id number] 13:25:01 Test Item Value Reference Range Interpretation Comments Folate Level (test code = 2284-8) 7.1 ng/ml >=3.0 [facility][QLH] IRON AND TOTAL IRON BINDING [id number] 13:25:01 Test Item Value Reference Range Interpretation Comments Iron (test code = 2498-4) 67 ug/dL 45-160 % [place] (test code = 2502-3) 18 % 12-57 TIBC (test code = 2500-7) 380 ug/dL 228-428 UIBC (test code = UIBC) 313 ug/dL 110-370 [facility][QLH] TSH, 3RD [id number] 13:25:01 Test Item Value Reference Range Interpretation Comments TSH (test code = 16770-5) 2.700 {uIU/ml} 0.360-3.740 [facility][QL] VITAMIN [id number] 13:25:01 Test Item Value Reference Range Interpretation Comments Vitamin B12 Level (test code = 345 pg/ml 254-1320 2132-9) [facility][QLH] LIPID [id number] 13:25:01 Test Item Value Reference Range Interpretation Comments Chol (test code = 168 mg/dl <=199 2093-3) Trig; Above High 450 mg/dl <=149 Threshold (test code = 2571-8) HDL Cholesterol; 31 mg/dl >=61 Below Low Threshold (test code = 2085-9) CHD Risk (test 5.42 4.00-7.30 code = 13740-1) LDL (test code = See Note <=99 [place] [address]-7) calculated due to very high triglyceri xiomara (>400mg/dL). Re commend Direct LDL if c linically indicated. VLDL (test code = See Note VLDL - Cho lesterol level VLDL) cannot be accur ately calculated due to very hightriglycerid es (>400 mg/dL). [facility][QLH] VITAMIN D, 25-HYDROXY, LC/[id number] 13:25:01 Test Item Value Reference Range Interpretation Comments Vitamin D, 25-OH, 27.9 ng/ml 30.0-100.0 Reference range is based Total (test code on recommen dations in the = Vitamin D, EndocrineSociet y Clinical 25-OH, Total) Practice Guide line (J Clin Endocrinol Ioeys5804;96:19 11-1930) [facility][H] Vitamin E [id number] 13:25:01 Test Item Value Reference Range Interpretation Comments Alpha-Tocoph 15.9 mg/L 5.9-19.4 This test was d eveloped and its orly (test performance code = characteristics determined by [facility]oc[facility]. It has not been cleared orly) orapproved by [facility] Food and Drug Administration. Gamma-Tocoph 2.3 mg/L 0.7-4.9 This test was d eveloped and its orly (test performance code = characteristics determined by [facility]Tocoph [facility]. It has not been cleared orly) orapproved by [facility] Food and Drug Administration. Reference intervals for a lpha and gamma-tocophero ldetermined from National Health and Nutrition ExaminationSurv , 1432-0989. Individuals wit h alpha-tocophero l levelsless than 5.0 mg/L are co nsidered vitamin E deficient.Per formed At: [facility] [address] [id number] ra Artemio BUCKNER Ph:[phone] [facility][H] Vit [id number] 13:25:01 Test Item Value Reference Range Interpretation [...] the Food and Drug Administration. Performed At: [facility] [address] [id number] Ulloa MD Ph:[phone] [facility]] VITAMIN B1, WHOLE [id number] 13:25:01 Test Item Value Reference Range Interpretation Comments Vitamin B1 108.6 66.5-200.0 This test was d eveloped and its Level (test nmol/L performance code = characteristics determined by Vitamin B1 [facility]. It has not been Level) cleared orappro samara by the Food and Drug Administration. Performed At: [facility] [id number] [facility] ZELDA Abrams [id number] ra Artemio BUCKNER Ph:[phone] [facility]
[2022-11-04] MEDS ORDERED: ONDANSETRON 4 MG/2 ML VIAL ONE ×2 (07:56→13:57)
[2022-11-04] MEDS ORDERED: MORPHINE 4 MG/ML SYR ONE (07:56)
[2022-11-04] MEDS ORDERED: NA CHLORIDE 0.9% 1,000 ML ONE ×2 (07:56→13:57)
[2022-11-04 08:12] LABS: Absolute Lymphocytes (CBC) 1.4 K/uL (0.7-4.9); Hematocrit 44.9 % (39.6-49.0); Lymphocytes % 11.2 % (15.3-44.8); MCV 89.7 fL (80-100); MPV 7.2 fL (7.6-11.3); RBC Red Blood Cell Count 5.01 M/uL (4.33-5.43)
[2022-11-04 08:33] LABS: Albumin 3.3 g/dL (3.4-5.0); Bilirubin Total 0.7 mg/dL (0.2-1.0)
[2022-11-04 08:33] LABS: Urine Blood 1+ (Negative); Urine Glucose Negative (Negative); Urine Protein 1+ (Negative); Urine Specific Gravity >=1.030 (1.005-1.030); Urine pH 5.5 (5.0-7.0)
[2022-11-04 08:34] LABS: Potassium 2.9 mmol/L (3.5-5.1)
--- NOTE | 2022-11-04 09:01 | RAD REPORT ---
EXAM DESCRIPTION: CT - Abdomen Pelvis W Contrast - 11/04/2022 8:45 am CLINICAL HISTORY: abd pain COMPARISON: Abdomen Pelvis W Contrast dated 11/15/2020 TECHNIQUE: Biphasic, helical CT imaging of the abdomen and pelvis was performed following 100 ml non -ionic IV contrast. Oral contrast: No. All CT scans are performed using dose optimization technique as appropriate and may include automated exposure control or mA/KV adjustment according to patient size. FINDINGS: No suspicious findings in the lung bases. The liver, spleen, and pancreas show no suspicious findings. Gallbladder and biliary tree are also wi thout suspicious finding. Symmetric renal function is seen with no hydronephrosis or suspicious renal mass. No pyelonephritis o r acute parenchymal process. No bladder abnormalities. No adrenal abnormalities. No stomach or small bowel abnormality. There is 8 centimeter long segment of sigmoid colon showing ci rcumferential wall thickening and edema. There is moderate stranding in the adjacent fat. Moderate di verticulosis is present in this region as well. There is no extraluminal air or bowel content. No abs cess or other complication. No free fluid. No other site of inflammatory stranding. No mass or bulk y lymphadenopathy. Fat filled left inguinal hernia is present. No suspicious bony findings. IMPRESSION: Moderate sigmoid diverticulitis. There is no abscess, free air or other complication.
[2022-11-04] MEDS ORDERED: POTASSIUM CL SA 10 MEQ TAB PO ONE (09:02)
--- NOTE | 2022-11-04 09:39 | ER ---
Nurse's Notes [facility] Name: Holger Fair Age: 42 yrs Sex: Male : 1980 Arrival Date: 11/04/2022 Time: 07:47 Bed 14 Private MD: Diagnosis: Diverticulitis of intestine, part unspecified, without perforation or abscess without bleeding Presentation: 11/04 07:53 Chief complaint: Patient states: i started having discomfort in my stomach yesterday kr3 and took a natural drink to make me go to the bathroom. I was up all night pooping and now I have 9/10 pain in my lower left abdomen. Coronavirus screen: Vaccine status: Patient reports being unvaccinated. Ebola Screen: Patient denies travel to an Ebola-affected area in the 21 days before illness onset. Initial Sepsis Screen: Does the patient meet any 2 criteria? No. Patient's initial sepsis screen is negative. Does the patient have a suspected source of infection? No. Patient's initial sepsis screen is negative. Risk Assessment: Do you want to hurt yourself or someone else? Patient reports no desire to harm self or others. Onset of symptoms was November 03, 2022. 07:53 Method Of Arrival: Ambulatory kr3 07:53 Acuity: SHIVAM 3 kr3 Triage Assessment: 07:57 General: Appears in no apparent distress. uncomfortable, Behavior is calm, cooperative, kr3 appropriate for age. Pain: Complains of pain in left lower quadrant. Historical: - Allergies: 07:56 Sulfa (Sulfonamide Antibiotics); kr3 - PMHx: 07:56 Glaucoma; kr3 - PSHx: 07:56 Appendectomy; kr3 - Immunization history:: Adult Immunizations not up to date. - Social history:: Smoking status: Reported history of juuling and/or vaping. Screenin:24 [facility] ED Fall Risk Assessment (Adult) History of falling in the last 3 months, 3 including since admission No falls in past 3 months (0 pts). Abuse screen: Denies threats or abuse. Denies injuries from another. Nutritional screening: No deficits noted. Tuberculosis screening: No symptoms or risk factors identified. Assessment: 08:55 Reassessment: Patient appears in no apparent distress at this time. Patient and/or kr3 family updated on plan of care and expected duration. Pain level reassessed. Patient is alert, oriented x 3, equal unlabored respirations, skin warm/dry/pink. Patient states symptoms have improved. patient states "I still have some discomfort but the pain is better" . 10:05 Reassessment: Patient appears in no apparent distress at this time. Patient and/or kr3 family updated on plan of care and expected duration. Pain level reassessed. Patient is alert, oriented x 3, equal unlabored respirations, skin warm/dry/pink. 11:00 Reassessment: Patient appears in no apparent distress at this time. Patient and/or kr3 family updated on plan of care and expected duration. Pain level reassessed. Patient is alert, oriented x 3, equal unlabored respirations, skin warm/dry/pink. 12:43 Reassessment: Patient appears in no apparent distress at this time. Patient and/or kr3 family updated on plan of care and expected duration. Pain level reassessed. Patient is alert, oriented x 3, equal unlabored respirations, skin warm/dry/pink. 15:00 Reassessment: Attempted to call report to 4th floor, nurse busy and will call back. 3 Vital Signs: 07:53 BP 147 / 94; Pulse 79; Resp 17; Temp 97.4; Pulse Ox 100% ; Weight 106.59 kg; Height 5 kr3 ft. 6 in. (167.64 cm); Pain 9/10; 08:57 BP 131 / 75; Pulse 64; Resp 18; Pulse Ox 100% on R/A; kr3 12:43 BP 133 / 62; Pulse 72; Resp 18; Pulse Ox 98% on R/A; kr3 07:53 Body Mass Index 37.93 (106.59 kg, 167.64 cm) 3 ED Course: 07:47 Patient arrived in ED. rg4 07:47 Katya Galindo FNP-C is PHCP. kb 07:47 Milan Fischer MD is Attending Physician. kb 07:48 Lupe Little, JACINDA is Primary Nurse. kr3 07:56 Triage completed. kr3 07:58 Arm band placed on right wrist. Patient placed in an exam room, on a stretcher. kr3 08:03 CBC with Diff Sent. bc6 08:03 CMP Sent. bc6 08:03 Lipase Sent. bc6 08:03 Initial lab(s) drawn, by ut, sent to lab. Inserted saline lock: 20 gauge in right bc6 antecubital area, using aseptic technique. 08:28 Attending Physician role handed off by Milan Fischer MD kj1 08:28 Salvador Lozano MD is Attending Physician. kj1 08:47 CT Abd/Pelvis - IV Contrast Only In Process Unspecified. EDMS 09:38 Wili Mckeon MD is Hospitalizing Provider. kb 09:38 Bossman Mckeon MD is Hospitalizing Provider. kb 09:46 Gerson Jackson MD is Hospitalizing Provider. kb 10:10 SARS RAPID Sent. kr3 15:24 No provider procedures requiring assistance completed. Patient admitted, IV remains in [address] Administered Medications: 08:05 Drug: Zofran (Ondansetron) 4 mg Route: IVP; Site: right antecubital; kr3 08:08 Drug: morphine 4 mg Route: IVP; Infused Over: 4 mins; Site: right antecubital; kr3 08:12 Drug: NS 0.9% 1000 ml Route: IV; Rate: 1 bolus; Site: right antecubital; kr3 09:03 Drug: Potassium Chloride 40 mEq Route: PO; kr3 10:08 Drug: Flagyl (metroNIDAZOLE) 500 mg Volume: 100 ml; Route: IVPB; Rate: 200 ml/hr; kr3 Infused Over: 30 mins; Site: right antecubital; 10:43 Drug: Cipro (ciprofloxacin) 400 mg Volume: 200 ml; Route: IVPB; Infused Over: 60 mins; kr3 Site: right antecubital; Medication: 15:24 VIS not applicable for this client. 3 Outcome: 09:38 Decision to Hospitalize by Provider. kb 15:24 Admitted to Tele accompanied by tech, via wheelchair, room 406, Report called to [facility] Freya 15:24 Condition: stable 15:24 Instructed on the need for admit. 15:55 Patient left the ED. [facility] Signatures: Dispatcher [employer] EDKatya Lima, LONG WINDER TENDER-C LONG WINDER TENDER-CkSocorro Hollis rg4 Tegan Galindo kj1 Lula Herrera, RN RN 3 Lupe Little RN RN 3 Yesenia Kerr [facility]
--- NOTE | 2022-11-04 09:39 | EDPHYS ---
Physician Documentation [facility] Name: Holger Fair Age: 42 yrs Sex: Male : 1980 Arrival Date: 11/04/2022 Time: 07:47 Bed 14 Private MD: ED Physician Salvador Lozano HPI: 11/04 08:04 This 42 yrs old Male presents to ER via Ambulatory with complaints of Abdominal Pain. kb 08:04 The patient presents with abdominal pain in the left lower quadrant. Onset: The kb symptoms/episode began/occurred last night. The symptoms do not radiate. Associated signs and symptoms: Pertinent positives: constipation, Pertinent negatives: nausea, vomiting, and diarrhea. The symptoms are described as constant. Modifying factors: The symptoms are alleviated by nothing, the symptoms are aggravated by nothing. Severity of pain: At its worst the pain was moderate in the emergency department the pain is unchanged. The patient has not experienced similar symptoms in the past. The patient has not recently seen a physician. Pt reports constipation yesterday, took a "natural drink" last night to clear his system which made him have a few episodes of diarrhea through the night. Today has had LLQ pain.. Historical: - Allergies: 07:56 Sulfa (Sulfonamide Antibiotics); kr3 - PMHx: 07:56 Glaucoma; kr3 - PSHx: 07:56 Appendectomy; kr3 - Immunization history:: Adult Immunizations not up to date. - Social history:: Smoking status: Reported history of juuling and/or vaping. ROS: 08:03 Constitutional: Negative for fever, chills, and weight loss. kb 08:03 Abdomen/GI: Positive for abdominal pain, constipation. 08:03 All other systems are negative. Exam: 08:03 Constitutional: This is a well developed, well nourished patient who is awake, alert, kb and in no acute distress. Head/Face: Normocephalic, atraumatic. ENT: Moist Mucous membranes Cardiovascular: Regular rate and rhythm with a normal S1 and S2. No gallops, murmurs, or rubs. No pulse deficits. Respiratory: Respirations even and unlabored. No increased work of breathing. Talking in full sentences Skin: Warm, dry with normal turgor. Normal color. MS/ Extremity: Pulses equal, no cyanosis. Neurovascular intact. Full, normal range of motion. Neuro: Awake and alert, GCS 15, oriented to person, place, time, and situation. Moves all extremities. Normal gait. Psych: Awake, alert, with orientation to person, place and time. Behavior, mood, and affect are within normal limits. 08:03 Abdomen/GI: Inspection: abdomen appears normal, Bowel sounds: normal, Palpation: soft, in all quadrants, moderate abdominal tenderness, in the left lower quadrant. Vital Signs: 07:53 BP 147 / 94; Pulse 79; Resp 17; Temp 97.4; Pulse Ox 100% ; Weight 106.59 kg; Height 5 kr3 ft. 6 in. (167.64 cm); Pain 9/10; 08:57 BP 131 / 75; Pulse 64; Resp 18; Pulse Ox 100% on R/A; kr3 12:43 BP 133 / 62; Pulse 72; Resp 18; Pulse Ox 98% on R/A; kr3 07:53 Body Mass Index 37.93 (106.59 kg, 167.64 cm) kr3 MDM: 07:50 Patient medically screened. kb 08:03 Data reviewed: vital signs, nurses notes. kb 09:19 ED course: Discussed admission for IV antibiotics vs outpatient treatment with PO kb antibiotics with pt. He is going to call and discuss the options with his to determine which plan of care he would like to proceed with. 09:46 Differential diagnosis: bowel obstruction, diverticulitis, gastritis, non-specific abd kb pain. Consideration of Admission/Observation Patient was admitted/placed on observation. Management of patient was discussed with the following: Hospitalist: JUAN CARLOS Ku accepts admission under Dr Jackson. Counseling: I had a detailed discussion with the patient and/or guardian regarding: the historical points, exam findings, and any diagnostic results supporting the discharge/admit diagnosis, lab results, radiology results, the need for further work-up and treatment in the hospital. 11/04 07:51 Order name: CBC with Diff; Complete Time: 08:16 kb 11/04 07:51 Order name: CMP; Complete Time: 08:55 kb 11/04 07:51 Order name: Lipase; Complete Time: 08:55 kb 11/04 07:51 Order name: CT Abd/Pelvis - IV Contrast Only; Complete Time: 09:14 kb 11/04 08:33 Order name: Urine Dipstick-Ancillary; Complete Time: 08:55 EDMS 11/04 09:39 Order name: SARS RAPID; Complete Time: 10:26 kb 11/04 07:51 Order name: IV Saline Lock; Complete Time: 08:03 kb 11/04 07:51 Order name: Labs collected and sent; Complete Time: 08:03 kb 11/04 07:51 Order name: Urine Dipstick-Ancillary (obtain specimen); Complete Time: 08:34 kb Administered Medications: 08:05 Drug: Zofran (Ondansetron) 4 mg Route: IVP; Site: right antecubital; kr3 08:08 Drug: morphine 4 mg Route: IVP; Infused Over: 4 mins; Site: right antecubital; kr3 08:12 Drug: NS 0.9% 1000 ml Route: IV; Rate: 1 bolus; Site: right antecubital; kr3 09:03 Drug: Potassium Chloride 40 mEq Route: PO; kr3 10:08 Drug: Flagyl (metroNIDAZOLE) 500 mg Volume: 100 ml; Route: IVPB; Rate: 200 ml/hr; kr3 Infused Over: 30 mins; Site: right antecubital; 10:43 Drug: Cipro (ciprofloxacin) 400 mg Volume: 200 ml; Route: IVPB; Infused Over: 60 mins; kr3 Site: right antecubital; Disposition: 16:41 Co-signature as Attending Physician, Salvador Lozano MD I agree with the assessment and kdr plan of care. Disposition Summary: 11/04/22 09:38 Hospitalization Ordered Hospitalization Status: Inpatient Admission kb Location: Telemetry/[facility] (Inpatient) kb Condition: Stable kb Problem: new kb Symptoms: are unchanged kb Bed/Room Type: Standard kb Provider: Gerson Jackson(11/04/22 09:46) kb Room Assignment: [facility](11/04/22 14:50) Diagnosis - Diverticulitis of intestine, part unspecified, without perforation or abscess kb without bleeding Forms: - Medication Reconciliation Form kb - SBAR form kb Signatures: Dispatcher [employer] EDAK Katya Galindo, Salvador Yi MD MD [facility] Maki Adam RN RN ss Lupe Little RN RN kr3 Corrections: (The following items were deleted from the chart) 09:46 09:38 Bossman Mckeon kb kb 14:50 09:38 kb ss
[2022-11-04] MEDS ORDERED: METRONIDAZOLE 500mg IVPB 500 MG/100 ML BAG IV ONE (10:03)
[2022-11-04] MEDS ORDERED: CIPROFLOXACIN 400mg IV 400 MG/200 ML BAG IV ONE (10:04)
[2022-11-04 10:25] LABS: SARS-CoV-2 Antigen Rapid Res Negative (Negative)
--- NOTE | 2022-11-04 10:28 | P.HP ---
Certification for Inpatient Patient admitted to: Observation With expected LOS: <2 Midnights Patient will require the following post-hospital care: None Practitioner: I am a practitioner with admitting privileges, knowledge of patient current condition, hospital course, and medical plan of care. Services: Services provided to patient in accordance with Admission requirements found in Title 42 Section 412.3 of the Code of Federal Regulations <Yovani Tate - Last Filed: 11/04/22 10:23> Patient History Date of Service: 11/04/22 Reason for admission: diverticulitis History of Present Illness: Mr. Fair is a 42 yo M who presents with 9/10 left lower quadrant abdominal pain beginning today at 6am. Patient reports he has been constipated for the last few days so he took a home remedy given to him by a coworker. Yesterday, he had a few episodes of diarrhea with no pain. He denies fever and vomiting, reports mild nausea. He last ate yesterday around lunchtime. Current pain is 7/10 after receiving morphine in the ED. Vital signs stable. WBC 12.4. K 2.9. CTAP shows moderate diverticulitis. - Past Medical/Surgical History Diabetic: No -: glaucoma -: Appendectomy -: L eye inoculation - Family History Family History: Reviewed- Non-Contributory - Social History Smoking Status: Current some day smoker (vape pen) Alcohol use: No CD- Drugs: No Caffeine use: Yes Place of Residence: Home <Yovani Tate - Last Filed: 11/04/22 10:23> Date of Service: 11/04/22 <Gerson Jackson - Last Filed: 11/04/22 17:22> Allergies Sulfa (Sulfonamide Antibiotics) Allergy (Verified 01/02/14 17:03) UNK Home Medications: NK [No Home Meds] 11/04/22 Review of Systems General: Unremarkable Eyes: Unremarkable ENT: Unremarkable Respiratory: Unremarkable Cardiovascular: Unremarkable Gastrointestinal: Nausea, Abdominal Pain, Diarrhea, Constipation Genitourinary: Unremarkable Musculoskeletal: Unremarkable Integumentary: Unremarkable Neurological: Unremarkable Lymphatics: Unremarkable <Rohini Taterocky Zimmerman - Last Filed: 11/04/22 10:23> Physical Examination - Physical Exam General: Alert, In no apparent distress, Obese HEENT: Atraumatic, Mucous membr. moist/pink, Other (l eye inoculation) Neck: Supple, No LAD Respiratory: Normal air movement Cardiovascular: No edema, Regular rate/rhythm Capillary refill: <2 Seconds Gastrointestinal: Normal bowel sounds, Soft and benign, Non-distended Musculoskeletal: No tenderness Integumentary: No rashes Neurological: Normal speech, Normal affect - Studies Laboratory Data (last 24 hrs) 11/04/22 08:00: Sodium 144, Potassium 2.9 L*, BUN 12, Creatinine 0.86, Glucose 82, Total Bilirubin 0.7, AST 11 L, ALT 23, Alkaline Phosphatase 31 L, Lipase 56 L 11/04/22 08:00: WBC 12.40 H, Hgb 15.1, Hct 44.9, Plt Count 238 <Yovani Tate - Last Filed: 11/04/22 10:23> - Studies Laboratory Data (last 24 hrs) 11/04/22 08:00: Sodium 144, Potassium 2.9 L*, BUN 12, Creatinine 0.86, Glucose 82, Total Bilirubin 0.7, AST 11 L, ALT 23, Alkaline Phosphatase 31 L, Lipase 56 L 11/04/22 08:00: WBC 12.40 H, Hgb 15.1, Hct 44.9, Plt Count 238 <Gerson Jackson - Last Filed: 11/04/22 17:22> Assessment and Plan - Plan Assessment Moderate sigmoid diverticulitis Hypokalemia Plan Moderate sigmoid diverticulitis - continue IV antibiotics and IV fluids - continue GI soft diet, advance as tolerated - pain management as needed Hypokalemia - monitor K levels closely - continue potassium supplementation as needed DVT ppx: Lovenox Discharge Plan: Home Plan to discharge in: 24 Hours - Advance Directives Does patient have a Living Will: No Does patient have a Durable POA for Healthcare: No - Code Status/Comfort Care Code Status Assessed: Yes (full code ) Critical Care: No Time Spent Managing Pts Care (In Minutes): 70 <Yovani Tate - Last Filed: 11/04/22 10:23> Physician Review: Patient Assessed, Agree with Above Assessment and Plan <Gerson Jackson - Last Filed: 11/04/22 17:22>
[2022-11-04] MEDS ORDERED: NA CHLORIDE 0.9% 1,000 ML IV SCH (13:44)
[2022-11-04] MEDS ORDERED: TRAMADOL HCL 50 MG TAB PO PRN (13:44)
[2022-11-04] MEDS ORDERED: ACETAMINOPHEN 500 MG TAB PO PRN (13:44)
[2022-11-04] MEDS ORDERED: ONDANSETRON 4 MG/2 ML VIAL IV PRN (13:44)
[2022-11-04 13:46] VITALS: BMI 37.9
[2022-11-04] MEDS ORDERED: MORPHINE 2 MG/ML SYR ONE (13:57)
[2022-11-04] MEDS ORDERED: KCL 20 MEQ/100 mL IVPB 100 ML IV ONE (13:57)
[2022-11-04] MEDS: KCL 20 MEQ/100 mL IVPB 20 MEQ/100 ML BAG IV SCH ×3 (14:00→16:09)
[2022-11-04] MEDS: MORPHINE 2 MG/ML SYR IV PRN ×2 (14:00→20:26)
[2022-11-04] MEDS: ENOXAPARIN 40 MG/0.4 ML SQ SCH (16:09)
[2022-11-04 16:48] VITALS: O2SAT 98
[2022-11-04] MEDS: METRONIDAZOLE 500mg IVPB 500 MG/100 ML BAG IV SCH (17:36)
[2022-11-04] MEDS: Ringers Lactate 1,000 ML IV SCH (17:47)
[2022-11-04] MEDS: CIPROFLOXACIN 400mg IV 400 MG/200 ML BAG IV SCH (20:26)
[2022-11-05] MEDS: METRONIDAZOLE 500mg IVPB 500 MG/100 ML BAG IV SCH ×2 (00:53→08:22)
[2022-11-05] MEDS: MORPHINE 2 MG/ML SYR IV PRN ×3 (02:37→12:26)
[2022-11-05] MEDS: Ringers Lactate 1,000 ML IV SCH ×2 (04:00→14:00)
[2022-11-05 04:30] LABS: Absolute Lymphocytes (CBC) 1.2 K/uL (0.7-4.9); Hematocrit 42.4 % (39.6-49.0); Lymphocytes % 9.6 % (15.3-44.8); MCV 90.2 fL (80-100); MPV 7.7 fL (7.6-11.3)
[2022-11-05 04:50] LABS: Magnesium 2.1 mg/dL (1.6-2.4); Phosphorus 2.5 mg/dL (2.5-4.9)
[2022-11-05] MEDS: ENOXAPARIN 40 MG/0.4 ML SQ SCH (08:23)
[2022-11-05] MEDS: CIPROFLOXACIN 400mg IV 400 MG/200 ML BAG IV SCH (08:23)
[2022-11-05 09:13] LABS: Specific Gravity 1.023 (1.005-1.030); Urine Bacteria None Seen /HPF (<20); Urine Bilirubin NEGATIVE (Negative); Urine Blood Trace (Negative); Urine Clarity Clear (Clear); Urine Color Yellow (Yellow); Urine Glucose NEGATIVE (Negative); Urine Mucus Slight /HPF (None Seen); Urine Protein TRACE (Negative); Urine Urobilinogen Normal (Normal); Urine pH 5.5 (5.0-7.0)
[2022-11-05 16:15] VITALS: BP 115/60; TEMP 98.3
--- NOTE | 2022-11-05 16:33 | P.DS ---
Admission Date: 11/04/22 Discharge Date: 11/05/22 Disposition: ROUTINE DISCHARGE Discharge Condition: GOOD Reason for Admission: diverticulitis Hospital Course: DIAGNOSIS: # Acute Moderate Uncomplicated Sigmoid Diverticulitis # Hypokalemia # Microscopic Hematuria # Glaucoma s/p Left Eye Enucleation HOSPITAL COURSE: Mr. Holger Fair is a 42 year old male with a past medical history significant for glaucoma s/p left eye enucleation who was admitted to the [facility] on 11/04/2022 for abdominal pain. He was admitted to the Medicine service. Upon further evaluation, his laboratory studies were notable for a potassium of 2.9. His urinalysis was notable for microscopic hematuria. His CT abdomen/pelvis revealed, "moderate sigmoid diverticulitis. There is no abscess, free air or other complication." He was placed NPO, started on IV fluids, and admitted for pain control. Over the course of his hospitalization, his pain has improved significantly and he was able to tolerate a regular diet without any issues. He states that he feels well today and would like to be discharged home. He was counseled that diverticulitis can be the first sign of malignancy. He was advised to schedule a colonoscopy in 4-6 weeks. He was provided the office contact information for Dr. Buenrostro. He verbalized understanding and agreed to make this appointment. Additionally, he was noted to have microscopic hematuria on his urinalysis. He was counseled on the possibility of an underlying urologic malignancy and advised to follow-up with Urology for further evaluation. He was provided the office contact information for Dr. Bryant. He verbalized understanding and agreed to make this appointment. On 11/05/2022, he was seen on morning rounds and deemed medically stable for discharge. He was discharged with instructions to schedule follow-up appointments with his PCP (Dr. Villarreal), with Gastroenterology (Dr. Buenrostro), and with Urology (Dr. Bryant). He was provided prescriptions for ciprofloxacin, metronidazole, and ondansetron. He was given the opportunity to ask questions and reported no further questions. Furthermore, all questions were answered to t he best of my ability. A copy of this discharge summary will be sent to the above providers to facilitate continuity of care. Today, I personally spent 25 minutes on his case, of which greater than 50% of the time was spent in patient education, counseling, and coordination of care as described above. Vital Signs/Physical Exam: Temp Pulse Resp BP Pulse Ox 98.3 F 78 18 115/60 96 11/05/22 16:00 11/05/22 16:00 11/05/22 16:00 11/05/22 16:00 11/05/22 16:00 General: Alert, In no apparent distress, Oriented x3 HEENT: Atraumatic, Mucous membr. moist/pink, Other (s/p left eye enucleation), Sclerae nonicteric Neck: JVD not distended Respiratory: Clear to auscultation bilaterally, Normal air movement Cardiovascular: No edema, Regular rate/rhythm, Normal S1 S2, No gallops, No rubs, No murmurs Gastrointestinal: Normal bowel sounds, Soft and benign, Non-distended, No tenderness, No rebound, No guarding Musculoskeletal: No clubbing Integumentary: No rashes Neurological: Normal speech, Normal affect Laboratory Data at Discharge: WBC 12.00 K/uL (4.3-10.9) H 11/05/22 03:45 Hgb 14.4 g/dL (13.6-17.9) 11/05/22 03:45 Hct 42.4 % (39.6-49.0) 11/05/22 03:45 Plt Count 196 K/uL (152-406) 11/05/22 03:45 Sodium 137 mmol/L (136-145) 11/05/22 03:45 Potassium 4.0 mmol/L (3.5-5.1) 11/05/22 03:45 BUN 9 mg/dL (7-18) 11/05/22 03:45 Creatinine 1.10 mg/dL (0.70-1.30) 11/05/22 03:45 Glucose 100 mg/dL (74-106) 11/05/22 03:45 Phosphorus 2.5 mg/dL (2.5-4.9) 11/05/22 03:45 Magnesium 2.1 mg/dL (1.6-2.4) 11/05/22 03:45 Total Bilirubin 0.7 mg/dL (0.2-1.0) 11/04/22 08:00 AST 11 U/L (15-37) L 11/04/22 08:00 ALT 23 U/L (16-61) 11/04/22 08:00 Alkaline Phosphatase 31 U/L (45-117) L 11/04/22 08:00 Lipase 56 U/L (73-393) L 11/04/22 08:00 Home Medications: Ciprofloxacin HCl [Cipro] 500 mg PO BID 10 Days #20 tab 11/05/22 Ondansetron [Zofran] 4 mg PO Q8H PRN 7 Days #20 tab 11/05/22 metroNIDAZOLE [Flagyl] 500 mg PO Q8H 10 Days #30 tab 11/05/22 New Medications: Ciprofloxacin HCl [Cipro] 500 mg PO BID 10 Days #20 tab metroNIDAZOLE [Flagyl] 500 mg PO Q8H 10 Days #30 tab Ondansetron [Zofran] 4 mg PO Q8H PRN 7 Days #20 tab PRN Reason: Nausea / Vomiting Physician Discharge Instructions: 1. Please call and schedule a follow-up appointment with your PCP (Dr. Villarreal) in 3-5 days 2. Please call and schedule a follow-up appointment with Gastroenterology (Dr. Buenrostro) in 4-6 weeks - As we discussed, you will need to schedule a colonoscopy in 4-6 weeks to evaluate cancer as the cause of your diverticulitis. 3. Please call and schedule a follow-up appointment with Urology (Dr. Bryant) in 5-7 days - As we discussed, you have blood in your urine and this can be an early sign of cancer. Please have him further evaluate the blood in your urine Diet: Regular Activity: Ad teresa Followup: Galo Villarreal MD [UNKNOWN] - Tyree Buenrostro MD [ACTIVE - CAN ADMIT] - Curt Bryant [ACTIVE - CAN ADMIT] - Time spent managing pt's care (in minutes): 25
== END 2022-11-05 17:22 | disposition home or self-care (01) ==
LOC: ER 07:43 → ERHOLD 10:18 → 4TH 15:25
PROVIDERS: ADMIT Internal Medicine; ATTEND Internal Medicine
DX: K57.32 Diverticulitis of large intestine without perforation or abscess without bleeding (principal); E87.6 Hypokalemia; Z88.2 Allergy status to sulfonamides; R31.29 Other microscopic hematuria; Z98.890 Other specified postprocedural states; Z20.822 Contact with and (suspected) exposure to COVID-19
CPT/HCPCS: 87040 ×2; 85025 ×2; 81001; 80048 ×2; 36415; 83735 ×2; 84100; 83605; 81003; 83690; 80053; 74177; 96375; 96374; 99285; 87811; Q9967; J3480 ×2; J1650 ×2; J2270 ×5; J7120 ×2; J7030 ×2; J2405 ×2; J0744 ×3; G0378